=== PATIENT | male | born 1945 | race Caucasian/White ===

== ENCOUNTER 2016-08-09 12:56 | Emergency (ER) | payer MEDICARE ==
[2016-08-09 14:01] LABS: BASOPHILS 0.4 % (0.0-2.0); EOSINOPHILS 2.3 % (0-7); HEMATOCRIT 39.1 % (42.0-54.0); HEMOGLOBIN 13.2 g/dL (13.5-17.5); IMMATURE GRANULOCYTES 0.6 % (0-5); LYMPHOCYTES 18.8 % (15-50); MCH 32.4 pg (26.0-34.0); MCHC 33.8 g/dL (31.0-37.0); MCV 95.8 fL (80.0-100.0); MEAN PLATELET VOLUME 9.7 fL (7.4-10.4); MONOCYTES 14.8 % (2-11); NEUTROPHILS 63.1 % (40-80); PLATELET COUNT 187 10x3/uL (130-400); RBC 4.08 10x6/uL (4.20-6.10); RDW 12.9 % (11.5-14.5)
== END 2016-08-09 14:44 | disposition home or self-care (01) ==
LOC: D.ER 12:56
PROVIDERS: Emergency Medicine
DX: S83.92XA Sprain of unspecified site of left knee, initial encounter (principal); X58.XXXA Exposure to other specified factors, initial encounter; Y93.89 Activity, other specified; Y92.89 Other specified places as the place of occurrence of the external cause

== ENCOUNTER 2016-12-12 15:22 | Emergency (ER) | payer MEDICARE | END 2016-12-12 17:21 | disposition home or self-care (01) | LOC: D.ER 15:22 | DX: M25.512 Pain in left shoulder (principal); M54.2 Cervicalgia; M25.561 Pain in right knee; M25.562 Pain in left knee; V89.2XXA Person injured in unspecified motor-vehicle accident, traffic, initial encounter ==

== ENCOUNTER 2016-12-27 15:50 | Inpatient (IN) | payer MEDICARE ==
[~2016-12-27] VITALS: Ht 167.6 cm; Wt 88.7 kg
[2016-12-27 17:26] LABS: ALBUMIN 3.1 g/dL (3.4-5.0); ALKALINE PHOSPHATASE 60 U/L (46-116); ALT (SGPT) 34 U/L (10-68); CALC OSMOLALITY 286 mosm/kg (275-300); CALCIUM 9.5 mg/dL (8.5-10.1); CARBON DIOXIDE 25.4 mmol/L (21.0-32.0); CHLORIDE - SERUM 104 mmol/L (98-107); CREATININE - SERUM 5.3 mg/dL (0.6-1.3); GLUCOSE 96 mg/dL (74-106); POTASSIUM - SERUM 3.4 mmol/L (3.5-5.1); PROTEIN - SERUM 6.8 g/dL (6.4-8.2); SODIUM 138 mmol/L (136-145); UREA NITROGEN 42 mg/dL (7-18); eGFR NON AFRICAN AMERICAN 11 mL/min (90-120)
[2016-12-27 17:29] LABS: APTT 26.7 SECONDS (22.8-39.4); INR 1.1 (0.85-1.17); PROTIME 14.1 SECONDS (11.6-15.0)
[2016-12-27 17:34] LABS: PRO BNP 529 pg/mL (0-125); TROPONIN-I < 0.017 ng/mL (0.000-0.060)
[2016-12-27 19:17] LABS: BASOPHILS 0.6 % (0-2); EOSINOPHILS 1.8 % (0-7); HEMATOCRIT 37.3 % (42.0-54.0); HEMOGLOBIN 12.4 g/dL (13.5-17.5); LYMPHOCYTES 12.7 % (15-50); MCH 32.4 pg (26.0-34.0); MCHC 33.2 g/dL (31.0-37.0); MCV 97.4 fL (80.0-100.0); MEAN PLATELET VOLUME 9.4 fL (7.4-10.4); MONOCYTES 12.9 % (2-11); PLATELET COUNT 211 10x3/uL (130-400); RBC 3.83 10x6/uL (4.20-6.10); RDW 13.2 % (11.5-14.5); WBC 7.2 10x3/uL (4.8-10.8)
[2016-12-27 20:40] VITALS: BP 129/67; Ht 167.6 cm; Wt 88.7 kg
[2016-12-27] MEDS ORDERED: DIOVAN80 MG PO (21:09)
[2016-12-27] MEDS ORDERED: METOPROLOL TART50 MG PO (21:09)
[2016-12-27] MEDS ORDERED: GLUCOTROL 5 MG T5 MG PO (21:10)
[2016-12-27] MEDS ORDERED: PACERONE400 MG PO (21:10)
[2016-12-27] MEDS ORDERED: TRIAMTERENE-HCT1 TA1 PO (21:11)
[2016-12-27] MEDS ORDERED: CRESTOR10 MG PO (21:12)
[2016-12-27] MEDS ORDERED: HYDROCODONE-APA1 TAB PO (21:13)
[2016-12-27] MEDS ORDERED: CYCLOBENZAPRINE10 MG PO (21:13)
[2016-12-28] VITALS: BP 127/74
--- NOTE | 2016-12-28 03:06 | NUR ---
PT AWAKE, RESPIRATIONS REGULAR AND UNLABORED, VOIDING APPROXIMATELY 300 CC PER TIME TIMES THREE. IV INFUSING.
[2016-12-28 04:00] VITALS: BP 134/86
--- NOTE | 2016-12-28 06:50 | NUR ---
PT RESTING WITHOUT S/S OF DISTRESS.
[2016-12-28 08:00] VITALS: BP 142/76
--- NOTE | 2016-12-28 08:22 | NUR ---
ASSESSMENT DONE. DENIES NEEDS
--- NOTE | 2016-12-28 10:16 | NUR ---
UP TO SHOWER. NO NEEDS INDICATED. WILL MONITOR.
[2016-12-28 12:00] VITALS: BP 132/70
[2016-12-28 16:00] VITALS: BP 147/77
[2016-12-28 17:19] LABS: CREATININE - URINE 80.6 mg/dL (30-125); POTASSIUM - URINE 38.2 MMOL/L (12.0-62.0); PROTEIN - URINE 62.3 mg/dL (0.0-11.9)
[2016-12-28 17:24] LABS: APPEARANCE HAZY (CLEAR); BILIRUBIN NEGATIVE (NEGATIVE); COLOR YELLOW (YELLOW); GLUCOSE 50 mg/dL (NEGATIVE); KETONE NEGATIVE (NEGATIVE); LEUKOCYTE ESTERASE NEGATIVE (NEGATIVE); NITRITE NEGATIVE (NEGATIVE); PROTEIN TRACE mg/dL (NEGATIVE); UROBILINOGEN NORMAL (NORMAL); WHITE CELLS - URINE 0-5 /hpf (0-5)
--- NOTE | 2016-12-28 17:43 | NUR ---
WITHOUT CHANGES OR DISTRESS NOTED AT THIS TIME. DENIES NEEDS.
[2016-12-28 19:00] VITALS: BP 152/79
--- NOTE | 2016-12-28 19:40 | NUR ---
PT IN BED RESTING WITH EYES CLOSED. IV TO RIGHT AC INTACT WITH NS. URINAL AT BEDSIDE. NO DISTRESS NOTED. WILL MONITOR.
--- NOTE | 2016-12-28 20:10 | NUR ---
WAS CALLED TO ROOM. PT IV HAD GOTTEN PULLED OUT AND BLOOD WAS ALL OVER FLOOR BED AND LINEN AND PT WAS STILL BLEEDING. APPLIED PRESSURE TO IV SITE AND THE ROOM AND BED WAS CLEANED WITH HELP FROM TUBULAR PRODUCTS FABRICATOR. PT RETURNED TO BED WILL RESITE THE IV.
[2016-12-29] VITALS (7 sets, daily range): BP systolic 133–150; BP diastolic 67–81
[2016-12-29 06:31] LABS: BASOPHILS 0.3 % (0-2); EOSINOPHILS 2.6 % (0-7); HEMATOCRIT 35.8 % (42.0-54.0); IMMATURE GRANULOCYTES 0.8 % (0-5); LYMPHOCYTES 16.4 % (15-50); MCH 32.2 pg (26.0-34.0); MCHC 33.5 g/dL (31.0-37.0); MEAN PLATELET VOLUME 9.4 fL (7.4-10.4); MONOCYTES 12.8 % (2-11); NEUTROPHILS 67.1 % (40-80); PLATELET COUNT 198 10x3/uL (130-400); RBC 3.73 10x6/uL (4.20-6.10); RDW 12.9 % (11.5-14.5); WBC 7.4 10x3/uL (4.8-10.8)
[2016-12-29 06:49] LABS: ANION GAP 10.2 mmol/L (8-16); CALCIUM 9.5 mg/dL (8.5-10.1); CARBON DIOXIDE 25.9 mmol/L (21.0-32.0); POTASSIUM - SERUM 3.1 mmol/L (3.5-5.1)
[2016-12-29 06:54] LABS: CREATININE - SERUM 3.9 mg/dL (0.6-1.3)
--- NOTE | 2016-12-29 18:07 | NUR ---
IV STARTED RIGHT HAND 22 GA X 1 ATTEMPT COVERED WITH OP SITE AND SECURED
--- NOTE | 2016-12-29 18:44 | NUR ---
ALERT AND ORIENTED X4. RESTING IN BED. AIR AND MISSILE DEFENSE CREWMEMBER RESITE IV TO RT HAND 22G. RESTART NS @ 100ml/HR PER . POSSIBLE DISCHARGE TOMORROW IF KIDNEY FUNCTIONS STABLE. DENIES ANY NEEDS. DENIES PAIN OR SOB. AMBULATES IN PERKINS. GAIT STEADY. BED LOCKED AND LOW. CALL LIGHT IN REACH. REFUSE SCDs. CONTINUE PLAN OF CARE. SINUS RHTHYM 68bpm ON TELEMETRY.
--- NOTE | 2016-12-29 19:48 | NUR ---
RESUMED CARE OF PT, LYING IN BED WITH EYES CLOSED RESPIRATIONS EVEN AND UNLABORED ON ROOM AIR. 60 SR ON TELEMETRY. LEFT HAND INFUSING NS @ 100. NO NEEDS NOTED AT THIS TIME. CALL LIGHT IN REACH. WILL CONTINUE TO MONITOR. SEE NURSE ASSESSMENT.
[2016-12-30 04:00] VITALS: BP 141/67
[2016-12-30 05:08] LABS: BASOPHILS 0.1 % (0-2); EOSINOPHILS 2.7 % (0-7); HEMATOCRIT 36.4 % (42.0-54.0); HEMOGLOBIN 12.3 g/dL (13.5-17.5); IMMATURE GRANULOCYTES 0.5 % (0-5); LYMPHOCYTES 15.5 % (15-50); MCH 32.5 pg (26.0-34.0); MCHC 33.8 g/dL (31.0-37.0); MEAN PLATELET VOLUME 9.2 fL (7.4-10.4); NEUTROPHILS 69.2 % (40-80); PLATELET COUNT 172 10x3/uL (130-400); RBC 3.79 10x6/uL (4.20-6.10); WBC 7.5 10x3/uL (4.8-10.8)
[2016-12-30 05:27] LABS: CALCIUM 9.6 mg/dL (8.5-10.1); CARBON DIOXIDE 28.4 mmol/L (21.0-32.0); CREATININE - SERUM 3.3 mg/dL (0.6-1.3); POTASSIUM - SERUM 3.4 mmol/L (3.5-5.1)
[2016-12-30 08:22] VITALS: BP 137/74
[2016-12-30 12:21] VITALS: BP 153/82
--- NOTE | 2016-12-30 13:31 | NUR ---
ALERT AND ORIENTED X4. RETURN TO ROOM VIA WHEELCHAIR FROM CT SCAN. DENIES SOB. COMPLAINS OF KNEE PAIN 11/13. SINUS RHTHYM 62bpm ON TELEMETRY. ELECTROLYTE PROTOCOL FOLLOWED TO CORRECT POTASSIUM 3.4. REFUSE SCDs. AMBULATORY. GAIT STEADY. CONTINUE PLAN OF CARE. RT HAND IV INFUSING NS @ 100mL/HR ORDERED.
--- NOTE | 2016-12-30 17:47 | NUR ---
VERBAL AND WRITTEN DISCHARGE INSTRUCTIONS GIVEN TO PATIENT. SALINE LOCK REMOVED WITH CATH TIP INTACT.
--- NOTE | 2016-12-30 17:49 | NUR ---
RT HAND IV DC BY LINDA JACKSON. DISCHARGE PAPERS SIGNED ON CHART. ESCORT TO RIDE VIA WHEELCHAIR. REMAINS FREE FROM INJURY.
== END 2016-12-30 17:50 | disposition home or self-care (01) | DRG 684 ==
LOC: D.ER 15:50 → D.M2 19:24 → OBSVTIME 19:24 → D.M2 20:13
PROVIDERS: Emergency Medicine; Internal Medicine; ADMIT Family Medicine
DX: N17.9 Acute kidney failure, unspecified (principal); E11.22 Type 2 diabetes mellitus with diabetic chronic kidney disease; I12.9 Hypertensive chronic kidney disease with stage 1 through stage 4 chronic kidney disease, or unspecified chronic kidney disease; N18.4 Chronic kidney disease, stage 4 (severe); E11.65 Type 2 diabetes mellitus with hyperglycemia; D63.1 Anemia in chronic kidney disease; I25.10 Atherosclerotic heart disease of native coronary artery without angina pectoris; Z98.61 Coronary angioplasty status; Z95.0 Presence of cardiac pacemaker; Z86.73 Personal history of transient ischemic attack (TIA), and cerebral infarction without residual deficits; S82.101D Unspecified fracture of upper end of right tibia, subsequent encounter for closed fracture with routine healing; X58.XXXD Exposure to other specified factors, subsequent encounter

== ENCOUNTER 2017-04-16 13:39 | Emergency (ER) | payer MEDICARE ==
[2016-12-27 20:40] VITALS: BMI 31.3
[~2017-04-16 13:39] MED LIST: CRESTOR10 MG PO; CYCLOBENZAPRINE10 MG PO; DIOVAN80 MG PO; GLUCOTROL 5 MG T5 MG PO; HYDROCODONE-APA1 TAB PO; METOPROLOL TART50 MG PO; PACERONE400 MG PO; TRIAMTERENE-HCT1 TA1 PO
== END 2017-04-16 14:33 | disposition home or self-care (01) ==
LOC: D.ER 13:39
DX: S39.012A Strain of muscle, fascia and tendon of lower back, initial encounter (principal); X58.XXXA Exposure to other specified factors, initial encounter; Y93.89 Activity, other specified; Y92.029 Unspecified place in mobile home as the place of occurrence of the external cause; M62.838 Other muscle spasm; M54.5 Low back pain; I10 Essential (primary) hypertension

== ENCOUNTER 2018-01-13 17:49 | Observation (INO) | payer MEDICARE ==
[~2018-01-13] VITALS: Ht 167.6 cm; Wt 86.9 kg
[2018-01-13] MEDS ORDERED: BAYER CHEWABLE81 MG PO (18:08)
[2018-01-13] MEDS ORDERED: PHENERGAN12.5 MG RC (18:09)
[2018-01-13] MEDS ORDERED: DIOVAN80 MG PO (18:09)
[2018-01-13] MEDS ORDERED: CATAPRES0.1 MG PO (18:11)
[2018-01-13 18:55] LABS: BASOPHILS 0.2 % (0-2); EOSINOPHILS 3.6 % (0-7); HEMATOCRIT 40.8 % (42.0-54.0); HEMOGLOBIN 14.2 g/dL (13.5-17.5); IMMATURE GRANULOCYTES 0.4 % (0-5); LYMPHOCYTES 10.1 % (15-50); MCH 33.1 pg (26.0-34.0); MCHC 34.8 g/dL (31.0-37.0); MCV 95.1 fL (80.0-100.0); MEAN PLATELET VOLUME 9.2 fL (7.4-10.4); MONOCYTES 13.4 % (2-11); NEUTROPHILS 72.3 % (40-80); PLATELET COUNT 192 10x3/uL (130-400); RBC 4.29 10x6/uL (4.20-6.10); RDW 13.6 % (11.5-14.5); WBC 11.6 10x3/uL (4.8-10.8)
[2018-01-13 19:17] LABS: ALBUMIN 2.7 g/dL (3.4-5.0); ANION GAP 6.6 mmol/L (8-16); BILIRUBIN - TOTAL 0.38 mg/dL (0.2-1.3); CALCIUM 9.3 mg/dL (8.5-10.1); CREATININE - SERUM 2.4 mg/dL (0.6-1.3); POTASSIUM - SERUM 3.6 mmol/L (3.5-5.1); PROTEIN - SERUM 6.7 g/dL (6.4-8.2)
[2018-01-13 19:27] LABS: APPEARANCE CLEAR (CLEAR); COLOR YELLOW (YELLOW); SPECIFIC GRAVITY 1.015 (1.005-1.020)
[2018-01-13 19:28] LABS: BILIRUBIN NEGATIVE (NEGATIVE); GLUCOSE NEGATIVE (NEGATIVE); KETONE NEGATIVE (NEGATIVE); NITRITE NEGATIVE (NEGATIVE); PROTEIN 1+ mg/dL (NEGATIVE); UROBILINOGEN NORMAL (NORMAL)
[2018-01-13 22:59] VITALS: BP 159/79
[2018-01-14 01:30] VITALS: BP 157/74
[2018-01-14 04:00] VITALS: BP 166/62
[2018-01-14 04:10] VITALS: BP 119/80; BMI 28.2
[2018-01-14 09:54] VITALS: BP 187/77
[2018-01-14 11:00] VITALS: BP 154/73
[2018-01-14 11:04] VITALS: Ht 167.6 cm; Wt 86.9 kg
[2018-01-14 20:00] VITALS: BP 186/75
[2018-01-14] MEDS ORDERED: HYDROCODONE-APA1 TAB PO (22:04)
[2018-01-15] VITALS: BP 160/56
[2018-01-15 04:00] VITALS: BP 156/77
[2018-01-15 04:30] LABS: BASOPHILS 0.2 % (0-2); EOSINOPHILS 3.5 % (0-7); HEMATOCRIT 34.4 % (42.0-54.0); HEMOGLOBIN 11.5 g/dL (13.5-17.5); IMMATURE GRANULOCYTES 0.3 % (0-5); LYMPHOCYTES 13.6 % (15-50); MCH 31.7 pg (26.0-34.0); MCHC 33.4 g/dL (31.0-37.0); MCV 94.8 fL (80.0-100.0); MEAN PLATELET VOLUME 9.4 fL (7.4-10.4); MONOCYTES 13.4 % (2-11); PLATELET COUNT 165 10x3/uL (130-400); RBC 3.63 10x6/uL (4.20-6.10); RDW 13.5 % (11.5-14.5); WBC 9.1 10x3/uL (4.8-10.8)
[2018-01-15 04:45] LABS: ALBUMIN 2.2 g/dL (3.4-5.0); ANION GAP 5.7 mmol/L (8-16); BILIRUBIN - TOTAL 0.28 mg/dL (0.2-1.3); CALCIUM 8.9 mg/dL (8.5-10.1); CREATININE - SERUM 2.4 mg/dL (0.6-1.3); POTASSIUM - SERUM 3.7 mmol/L (3.5-5.1); PROTEIN - SERUM 5.5 g/dL (6.4-8.2)
[2018-01-15 08:01] VITALS: BP 106/73
[2018-01-15 11:21] VITALS: BP 103/77
[2018-01-15 15:33] VITALS: BP 109/71
[2018-01-15 20:57] VITALS: BP 158/64
[2018-01-16 01:26] VITALS: BP 172/75
[2018-01-16 04:00] VITALS: BP 127/48
[2018-01-16 05:18] LABS: BASOPHILS 0.2 % (0-2); EOSINOPHILS 4.4 % (0-7); HEMATOCRIT 32.1 % (42.0-54.0); HEMOGLOBIN 10.8 g/dL (13.5-17.5); IMMATURE GRANULOCYTES 0.5 % (0-5); LYMPHOCYTES 12.5 % (15-50); MCH 31.5 pg (26.0-34.0); MCHC 33.6 g/dL (31.0-37.0); MCV 93.6 fL (80.0-100.0); MEAN PLATELET VOLUME 9.7 fL (7.4-10.4); MONOCYTES 10.4 % (2-11); PLATELET COUNT 160 10x3/uL (130-400); RBC 3.43 10x6/uL (4.20-6.10); RDW 13.5 % (11.5-14.5); WBC 9.7 10x3/uL (4.8-10.8)
[2018-01-16 05:53] LABS: ALBUMIN 1.9 g/dL (3.4-5.0); ANION GAP 9.4 mmol/L (8-16); BILIRUBIN - TOTAL 0.28 mg/dL (0.2-1.3); CALCIUM 8.5 mg/dL (8.5-10.1); CARBON DIOXIDE 22.9 mmol/L (21.0-32.0); POTASSIUM - SERUM 3.3 mmol/L (3.5-5.1)
[2018-01-16 08:30] VITALS: BP 144/81
[2018-01-16 12:01] VITALS: BP 153/78
[2018-01-16 16:14] VITALS: BP 164/79
== END 2018-01-16 17:22 | disposition home health service (06) ==
LOC: D.ER 17:49 → D.EDHOLD 22:22 → D.M2 22:22 → D.EDHOLD 22:22 → OBSVTIME 22:22 → D.M2 01-14 01:03
PROVIDERS: Family Medicine
DX: E11.649 Type 2 diabetes mellitus with hypoglycemia without coma (principal); E11.22 Type 2 diabetes mellitus with diabetic chronic kidney disease; I12.9 Hypertensive chronic kidney disease with stage 1 through stage 4 chronic kidney disease, or unspecified chronic kidney disease; N18.4 Chronic kidney disease, stage 4 (severe); I25.10 Atherosclerotic heart disease of native coronary artery without angina pectoris; Z95.1 Presence of aortocoronary bypass graft; D63.1 Anemia in chronic kidney disease; Z95.0 Presence of cardiac pacemaker; I48.91 Unspecified atrial fibrillation; R19.5 Other fecal abnormalities

== ENCOUNTER 2018-01-19 08:25 | Day surgery (SDC) | payer MEDICARE ==
[~2018-01-19] VITALS: Ht 167.6 cm; Wt 79.1 kg
--- NOTE | ~2018-01-19 | OP ---
PATIENT NAME: ANABELLE STRAUSS MEDICAL RECORD: [id number] :47 LOCATION:[facility] ADMISSION DATE: SURGEON: RENZO TYLER DO DATE OF OPERATION: 01/19/2018 PROCEDURE: EGD with biopsies. INDICATIONS FOR PROCEDURE: Melenic stools, anemia, nausea and vomiting. SCOPE: Olympus video gastroscope. MEDICATIONS: Propofol 100 mg IV per anesthesia. ESTIMATED BLOOD LOSS: Minimal. COMPLICATIONS: None. FINDINGS: Informed consent was given. The patient was made comfortable with the above medication. After reaching an adequate level of sedation by slow IV push, the patient was placed on his left side. The endoscope was advanced under direct visualization through the mouth to the second portion of the duodenum. The entire esophagus appeared normal. At the GE junction, there was some evidence of LA class A reflux induced esophagitis without ulcerations or erosions. The endoscope was advanced beyond the GE junction into the stomach and retroflexed to view the cardia, where a small sliding hiatal hernia was present. The fundus and body of the stomach appeared normal. In the antrum and prepyloric region, there were a couple polypoid lesions which appeared to be reactive. Biopsies were taken from these sites to submit for histopathology. Random biopsies were taken in the stomach to submit for histopathology and to rule out the presence of H. pylori. The endoscope was advanced beyond the pylorus into the duodenum. The entire examined duodenum appeared normal. The endoscope was then withdrawn from the patient. The patient tolerated the procedure well and there were no complications. IMPRESSION: 1. LA class A reflux-induced esophagitis. 2. Small sliding hiatal hernia. 3. A couple gastric polyps, which appear to be reactive in nature. Biopsies were taken of these sites. PLAN AND RECOMMENDATIONS: 1. Discharge home when recovery parameters are met. 2. Follow up biopsy specimen results. 3. If biopsy return with adenomatous tissue on biopsies from the gastric polyps, the patient will be rescheduled for an EGD for polypectomy. If these are reactive, we will treat this medically. 4. Continue current medications. 5. Protonix 40 mg daily times 8 weeks. 6. Recommend a colonoscopy as the patient has never had one performed. TRANSINT:[id number] Voice Confirmation ID: [id number] DOCUMENT ID: [id number] OPERATIVE REPORT [id number] ANABELLE STRAUSSRENZO MCKINNON DO at 1255 CC: [id number] DICTATION DATE: 01/19/18 1044 SAP TECHNICAL DEVELOPER: 01/19/18 1123 [facility] 01/19/18 [id number] [place] [address]
[~2018-01-19 08:25] MED LIST changes: +BAYER CHEWABLE81 MG PO; +CATAPRES0.1 MG PO; +PHENERGAN12.5 MG RC
[2018-01-19] MEDS ORDERED: BAYER CHEWABLE81 MG PO (09:44)
[2018-01-19 09:50] VITALS: Ht 167.6 cm; Wt 79.1 kg
[2018-01-19 10:00] LABS: BASOPHILS 0.3 % (0-2); EOSINOPHILS 5.3 % (0-7); HEMATOCRIT 34.4 % (42.0-54.0); HEMOGLOBIN 11.6 g/dL (13.5-17.5); IMMATURE GRANULOCYTES 0.5 % (0-5); LYMPHOCYTES 12.7 % (15-50); MCH 31.9 pg (26.0-34.0); MCHC 33.7 g/dL (31.0-37.0); MCV 94.5 fL (80.0-100.0); MEAN PLATELET VOLUME 9.2 fL (7.4-10.4); MONOCYTES 9.8 % (2-11); NEUTROPHILS 71.4 % (40-80); PLATELET COUNT 170 10x3/uL (130-400); RBC 3.64 10x6/uL (4.20-6.10); RDW 13.3 % (11.5-14.5); WBC 9.5 10x3/uL (4.8-10.8)
[2018-01-19 10:12] LABS: ANION GAP 4.6 mmol/L (8-16); CALCIUM 9.1 mg/dL (8.5-10.1); CARBON DIOXIDE 31.1 mmol/L (21.0-32.0); CREATININE - SERUM 2.2 mg/dL (0.6-1.3); POTASSIUM - SERUM 3.7 mmol/L (3.5-5.1)
== END 2018-01-19 12:09 | disposition home or self-care (01) ==
LOC: D.OPS 08:25
PROVIDERS: Anesthesiology
DX: K21.0 Gastro-esophageal reflux disease with esophagitis (principal); K44.9 Diaphragmatic hernia without obstruction or gangrene; K31.7 Polyp of stomach and duodenum; Z01.812 Encounter for preprocedural laboratory examination

== ENCOUNTER 2018-04-10 05:15 | Day surgery (SDC) | payer MEDICARE, MEDICAID ==
[2018-04-09 11:04] LABS: BASOPHILS 0.4 % (0-2); EOSINOPHILS 3.1 % (0-7); HEMATOCRIT 38.5 % (42.0-54.0); HEMOGLOBIN 13.1 g/dL (13.5-17.5); IMMATURE GRANULOCYTES 0.5 % (0-5); LYMPHOCYTES 15.8 % (15-50); MCH 32.3 pg (26.0-34.0); MCV 95.1 fL (80.0-100.0); MEAN PLATELET VOLUME 9.1 fL (7.4-10.4); MONOCYTES 9.2 % (2-11); PLATELET COUNT 171 10x3/uL (130-400); RBC 4.05 10x6/uL (4.20-6.10); RDW 13.2 % (11.5-14.5)
[2018-04-09 11:13] LABS: ANION GAP 9.2 mmol/L (8-16); CALCIUM 9.2 mg/dL (8.5-10.1); CREATININE - SERUM 3.1 mg/dL (0.6-1.3); POTASSIUM - SERUM 4.2 mmol/L (3.5-5.1)
[2018-04-09 11:21] LABS: APTT 26.9 SECONDS (22.8-39.4); INR 1.02 (0.85-1.17)
[~2018-04-10] VITALS: Ht 167.6 cm; Wt 78.0 kg
--- NOTE | ~2018-04-10 | OP ---
PATIENT NAME: ANABELLE STRAUSS MEDICAL RECORD: [id number] :47 LOCATION:D.[facility] ADMISSION DATE: SURGEON: CANDACE ZAVALA MD DATE OF OPERATION: 04/10/2018 PREOPERATIVE DIAGNOSIS: Chronic kidney disease IV. POSTOPERATIVE DIAGNOSIS: Chronic kidney disease IV. OPERATION PERFORMED: Creation of a left arm brachiocephalic arteriovenous fistula. SURGEON: Candace Zavala MD ANESTHESIA: General plus regional nerve block per MORTGAGE LOAN ORIGINATOR. REFERRING PHYSICIAN: Dr. Ochoa PREOPERATIVE NOTE: This 72-year-old white male is anticipated to require dialysis and is brought to the hospital today for fistula creation. DESCRIPTION OF PROCEDURE: Under anesthesia in supine position, the patient was prepped and draped in a sterile manner. I applied nitroglycerin to the skin of the arm and forearm and used a Midland drain and then examined him with ultrasound and noted that the basilic and cephalic veins in the arm from the antecubital space proximally were both excellent candidates for fistula creation. I opted to use the cephalic vein. A transverse incision was made and this vein was dissected and then its junction with the median cubital vein was ligated with 3-0 Vicryl preserving that median cubital basilic venous drainage. The vein was then flushed with heparinized saline and treated with topical papaverine and controlled with an atraumatic vascular clamp. I exposed the brachial artery and controlled it proximally and distally with doubly looped Silastic tapes. I opened the artery and flushed it proximally and distally with heparinized saline and then bevelled the vein and did an end-to-side, end-of-vein to [id number] anastomosis with running 7-0 Prolene. When completed, the loops were released and excellent flow developed immediately in the fistula. The suture line was hemostatic and there was preservation of pulsatile high resistance type flow in the distal brachial artery and in the radial artery at the wrist with good pulsatile continuous flow in the proximal brachial artery and within the fistula. The wounds were irrigated with Ancef-gentamicin solution and infiltrated with 0.25% Marcaine without epinephrine and closed with interrupted inverted 3-0 Vicryl and running intracuticular 4-0 Stratafix, then Dermabond glue and a bandage of Maxorb Ag, Tegaderm, and Cavilon skin prep. The patient was awakened and taken to the recovery room. Blood loss was about 10 cc or less, certainly unreplaced. All sponges, instruments, and needles were accounted for. No drain was used and no surgical specimen submitted for histopathology. He will go home today and return to see me in my office in about 2 weeks. He is advised to use ice off and on and take Tylenol for pain and he is wearing a sling only until the regional block wears off totally and to be sure to take the sling off at least by tomorrow and to resume activities as he can. I would like him to use his arm and not hold still as in a sling. OPERATIVE REPORT [id number] ANABELLE STRAUSS TRANSINT:[id number] Voice Confirmation ID: [id number] DOCUMENT ID: [id number] CANDACE ZAVALA MD at 1645 CC: TAMEKA OCHOA MD [id number] DICTATION DATE: 04/10/18 1325 DIRECTOR INTERNAL COMMUNICATIONS: 04/10/18 1336 [facility] [address] [place] [address]
[~2018-04-10 05:15] MED LIST changes: +ATIVAN1 MG PO; +HYDRALAZINE HCL25 MG PO
[2018-04-10 06:11] VITALS: Ht 167.6 cm; Wt 78.0 kg
== END 2018-04-10 13:35 | disposition home or self-care (01) ==
LOC: D.OPS 05:15 → D.PAN 08:00 → D.OPS 08:00
PROVIDERS: Surgery
DX: N18.4 Chronic kidney disease, stage 4 (severe) (principal); Z01.812 Encounter for preprocedural laboratory examination

== ENCOUNTER 2018-06-10 05:38 | Inpatient (IN) | payer MEDICARE, MEDICAID ==
[2018-06-10] VITALS (25 sets, daily range): BP systolic 126–208; BP diastolic 65–106; BMI 29.0
[~2018-06-10] VITALS: Ht 167.6 cm; Wt 85.1 kg
--- NOTE | ~2018-06-10 | MORECARE ---
CASE MANAGEMENT DISCHARGE SUMMARY PATIENT: ANABELLE STRAUSS UNIT: [id number] ADM DATE: 06/10/18 AGE: 73 : 46 SEX: M ROOM/BED: D.2234 AUTHOR: SWETHA,DOC PHYSICIAN: REFERRING PHYSICIAN: MARTIN ARIAS MD DATE OF SERVICE: 06/25/18 Discharge Plan Patient Name: ANABELLE STRAUSS Facility: [facility]:[place] : 1945 Planned Disposition: Home with Home Health Anticipated Discharge Date: Discharge Date: Expected LOS: Initial Reviewer: [email or web address] Initial Review Date: 06/22/2018 Generated: 06/25/18 11:42 am Comments DCP- Discharge Planning Updated by [email or web address]: Ngozi Mcmullen on 06/25/18 9:[address] Received a call from [facility], they will not accept patient due to medical needs. I called Chanel at [facility] and sent referral there and clinical faxed. I called Clementina Mello and informed of above and she agrees with [facility] referral (second choice). CM will continue to follow and assist with discharge planning/needs. DCP- Discharge Planning Updated by [email or web address]: Ngozi Benedict on 06/24/18 1:[address] Met with patient's girlfriend, Clementina. She and the patient agree to rehab at a skilled facility. ALPHONSO given and they chose [facility]. Referral called to [facility] and clinical faxed. CM will continue to follow and assist with discharge planning/needs. DCP- Discharge Planning Updated by [email or web address]: Ngozi Benedict on 06/24/18 11:[address] Received a call from Lashaun in inpatient rehab and she states that they feel the patient will require a skilled facility rather than inpatient rehab based on his therapy notes. I spoke with patient about this and he would like me to call his ", Clementina". I called Clementina and she would like to meet with me today and choose a skilled facility. She states she is at a school function at this time. I told her when she got here to notify the nurse or principal secretary that she needed to speak with me. CM will continue to follow and assist with discharge planning/needs. DCP- Discharge Planning Updated by [email or web address]: Selam Guillen on 06/22/18 1:[address] Patient Name: ANABELLE STRAUSS Admission Status: ER Accout number: [id number] Admission Date: 06-10-2018 : 1945 Admission Diagnosis:ENCEPHALOPATHY, UNSPECIFIED Attending: MARTIN ARIAS Current LOS: 12 Anticipated DC Date: Planned Disposition: Home with Home Health Primary Insurance: [employer] CHOICE PPO [facility] Discharge Planning Comments: CM spoke with patient at his bedside. Patient states that he plans on returning to his home with his girlfriend Clementina when discharged. Patient states he had Home Health with [facility] prior to admission. Patient denies any discharge needs at this time. CM will continue to follow and assist as needs with discharge planning / needs Color Maker Formulator: Selam Guillen DCP- Discharge Planning Updated by [email or web address]: Selam Guillen on 06/15/18 1:[address] CM still unable to do intake assessment. Patient still on vent at this time. There are some issues with family dynamics regarding girlfriend and daughter. CM will continue to follow and assist with discharge planning / needs. DCP- Discharge Planning Updated by [id number]: Selam Guillen on 06/12/18 4:[address] CM attempted to visit with patient but he currently is on vent and no family available @ this time. CM will continue to follow and assist with discharge planning / needs. DCPIA - Discharge Planning Initial Assessment Updated by [email or web address]: Selam Guillen on 06/22/18 2:06 pm * Is the patient Alert and Oriented? Yes * How many steps to enter\\exit or inside your home? * PCP DR. GARCÍA * Pharmacy [facility] * Preadmission Environment Home with Family * ADLs Independent * Equipment Walker * List name and contact numbers for known caregivers / representatives who currently or will assist patient after discharge: CLEMENTINA MELLO [phone] * Verbal permission to speak to the caregivers and representatives has been obtained from the patient. N/A * Community resources currently utilized Home Health * Please name any agencies selected above. [facility] * Additional services required to return to the preadmission environment? No * Can the patient safely return to the preadmission environment? Yes * Has this patient been hospitalized within the prior 30 days at any hospital? No Last DP export: 06/25/18 9:35 Patient Name: ANABELLE STRAUSS Page [id number] at 1042 All edits/amendments must be made on the electronic document DICTATION DATE: 06/25/18 104 PRODUCTION MECHANIC TIN CANS: MARILU 06/25/18 1042 RPT#: [id number] DC DATE: STATUS: ADM IN [facility] [address] [place] [address] END OF REPORT
--- NOTE | ~2018-06-10 | EC ---
PATIENT:ANABELLE STRAUSS DATE OF SERVICE: 06/10/18 SEX: M MEDICAL RECORD: [id number] DATE OF : 47 LOCATION:[facility] AGE OF PATIENT: 73 ADMISSION DATE: 06/10/18 REFERRING PHYSICIAN: INTERPRETING PHYSICIAN: MONIQUE DAMON MD ECHOCARDIOGRAM REPORT ECHO CHARGES 4 ECHO COMPLETE Date: 06/11/18 CLINICAL DIAGNOSIS: CHF ECHOCARDIOGRAPHIC MEASUREMENTS (adult normal given) AC root (d.<3.7cm) 3.1 cm LV Septum d (<1.2 cm> 1.5 cm Valve Excursion 0.9 cm LV Septum (systole) 1.8 cm Left Atria (s.<4.0cm> 4.4 cm LVPW d(<1.2cm) 1.5 cm RV (d.<2.3cm) 3.0 cm LVPW (sytole) 1.9 cm LV diastole(<5.6CM) 4.9 cm MV E-F(>70mm/sec) cm LV systole 2.9 cm LVOT Diameter 11.9 cm MV exc.(>10mm) 1.3 cm Est.ejection fraction (50-75%) % DOPPLER: LVIT cm/sec A 64.0 cm/sec E 51.0 cm/sec LA cm/sec RVSP 37 mmHg LVOT 149 cm/sec AOP1/2T m/s Asc. Ao 184 cm/sec RVOT 76 cm/sec RA cm/sec PA 147 cm/sec AV Gradient Peak 13.61mmHg AV Mean 6.81 mmHg AV Area 2.4 cm MV Gradient Peak 3.11 mmHg MV Mean 0.84 mmHg MV Area cm COMMENTS: Customer Accounts Advisor: 2 TARIQ WEBER Cheese Grader: 3 Dr. Goodman TAPE# PACS Pericardial Effusion N DATE OF SERVICE: 06/11/2018 Adequate 2-D echo, color flow and spectral Doppler, and M-mode. LVH is present. LV internal dimensions are normal. Wall motion is normal. EF is greater than or equal to 55%. Aortic valve is tricuspid. No evidence of stenosis on Doppler interrogation. Left atrium is dilated at 4.4 cm. Mitral valve shows no prolapse. Mild MR. Right-sided chambers grossly normal. Mild TR. TRANSINT:[id number] Voice Confirmation ID: [id number] DOCUMENT ID: [id number] ECHOCARDIOGRAM REPORT [id number] ANABELLE STRAUSS,MONIQUE Snyder MD at 1546 CC: [id number] DICTATION DATE: 06/11/18 1229 WIND SITE MANAGER: 06/11/18 1250 ADM IN [facility] [address] [place] [address]
--- NOTE | ~2018-06-10 | MORECARE ---
CASE MANAGEMENT DISCHARGE SUMMARY PATIENT: ANABELLE STRAUSS UNIT: [id number] ADM DATE: 06/10/18 AGE: 73 : 46 SEX: M ROOM/BED: D.2313 AUTHOR: SWETHA,DOC PHYSICIAN: REFERRING PHYSICIAN: MARTIN ARIAS MD DATE OF SERVICE: 06/22/18 Discharge Plan Patient Name: ANABELLE STRAUSS Facility: [facility]:[place] : 1945 Planned Disposition: Home with Home Health Anticipated Discharge Date: Discharge Date: Expected LOS: Initial Reviewer: [email or web address] Initial Review Date: 06/22/2018 Generated: 06/22/18 3:09 pm Comments DCP- Discharge Planning Updated by [email or web address]: Selam Guillen on 06/15/18 1:[address] CM still unable to do intake assessment. Patient still on vent at this time. There are some issues with family dynamics regarding girlfriend and daughter. CM will continue to follow and assist with discharge planning / needs. DCP- Discharge Planning Updated by [email or web address]: Selam Guillen on 06/12/18 4:[address] CM attempted to visit with patient but he currently is on vent and no family available @ this time. CM will continue to follow and assist with discharge planning / needs. DCPIA - Discharge Planning Initial Assessment Updated by [email or web address]: Selam Guillen on 06/22/18 2:06 pm * Is the patient Alert and Oriented? Yes * How many steps to enter\exit or inside your home? * PCP DR. GARCÍA * Pharmacy [facility] * Preadmission Environment Home with Family * ADLs Independent * Equipment Walker * List name and contact numbers for known caregivers / representatives who currently or will assist patient after discharge: CLEMENTINAJAKE MCELROY [phone] * Verbal permission to speak to the caregivers and representatives has been obtained from the patient. N/A * Community resources currently utilized Home Health * Please name any agencies selected above. [facility] * Additional services required to return to the preadmission environment? No * Can the patient safely return to the preadmission environment? Yes * Has this patient been hospitalized within the prior 30 days at any hospital? No Last DP export: 06/15/18 1:43 Patient Name: ANABELLE STRAUSS Page [id number] at 1410 All edits/amendments must be made on the electronic document DICTATION DATE: 06/22/181408 REAL ESTATE SITE ANALYST: MARILU 06/22/181408 RPT#: [id number] DC DATE: STATUS: ADM IN [facility] [address] [place] [address] END OF REPORT
--- NOTE | ~2018-06-10 | MORECARE ---
CASE MANAGEMENT DISCHARGE SUMMARY PATIENT: ANABELLE STRAUSS UNIT: [id number] ADM DATE: 06/10/18 AGE: 73 : 47 SEX: M ROOM/BED: D.2313 AUTHOR: SWETHA,DOC PHYSICIAN: REFERRING PHYSICIAN: MARTIN ARIAS MD DATE OF SERVICE: 06/22/18 Discharge Plan Patient Name: ANABELLE STRAUSS Facility: [facility]:[place] : 1945 Planned Disposition: Home with Home Health Anticipated Discharge Date: Discharge Date: Expected LOS: Initial Reviewer: [email or web address] Initial Review Date: 06/22/2018 Generated: 06/22/18 3:16 pm Comments DCP- Discharge Planning Updated by [email or web address]: Selam Guillen on 06/22/18 1:[address] Patient Name: ANABELLE STRAUSS Admission Status: ER Accout number: [id number] Admission Date: 06-10-2018 : 1945 Admission Diagnosis:ENCEPHALOPATHY, UNSPECIFIED Attending: MARTIN ARIAS Current LOS: 12 Anticipated DC Date: Planned Disposition: Home with Home Health Primary Insurance: [employer] CHOICE PPO [facility] Discharge Planning Comments: CM spoke with patient at his bedside. Patient states that he plans on returning to his home with his girlfriend Clementina when discharged. Patient states he had Home Health with [facility] prior to admission. Patient denies any discharge needs at this time. CM will continue to follow and assist as needs with discharge planning / needs Heat Treating Bluer: Selam Guillen DCP- Discharge Planning Updated by [email or web address]: Selam Guillen on 06/15/18 1:[address] CM still unable to do intake assessment. Patient still on vent at this time. There are some issues with family dynamics regarding girlfriend and daughter. CM will continue to follow and assist with discharge planning / needs. DCP- Discharge Planning Updated by [email or web address]: Selam Guillen on 06/12/18 4:[address] CM attempted to visit with patient but he currently is on vent and no family available @ this time. CM will continue to follow and assist with discharge planning / needs. DCPIA - Discharge Planning Initial Assessment Updated by [email or web address]: Selam Guillen on 06/22/18 2:06 pm * Is the patient Alert and Oriented? Yes * How many steps to enter\exit or inside your home? * PCP DR. GARCÍA * Pharmacy [facility] * Preadmission Environment Home with Family * ADLs Independent * Equipment Walker * List name and contact numbers for known caregivers / representatives who currently or will assist patient after discharge: CLEMENTINA MCELROY [phone] * Verbal permission to speak to the caregivers and representatives has been obtained from the patient. N/A * Community resources currently utilized Home Health * Please name any agencies selected above. [facility] * Additional services required to return to the preadmission environment? No * Can the patient safely return to the preadmission environment? Yes * Has this patient been hospitalized within the prior 30 days at any hospital? No Last DP export: 06/22/18 1:09 Patient Name: ANABELLE STRAUSS Page [id number] at 1416 All edits/amendments must be made on the electronic document DICTATION DATE: 06/22/181414 METAL SPRAYING MACHINE OPERATOR: MARILU 06/22/181414 RPT#: [id number] DC DATE: STATUS: ADM IN [facility] [address] [place] [address] END OF REPORT
--- NOTE | ~2018-06-10 | MORECARE ---
CASE MANAGEMENT DISCHARGE SUMMARY PATIENT: ANABELLE STRAUSS UNIT: [id number] ADM DATE: 06/10/18 AGE: 73 : 47 SEX: M ROOM/BED: D.2313 AUTHOR: NAYELI POSADA PHYSICIAN: REFERRING PHYSICIAN: MARTIN ARIAS MD DATE OF SERVICE: 06/15/18 Discharge Plan Patient Name: ANABELLE STRAUSS [facility] : 1945 Planned Disposition: Anticipated Discharge Date: Discharge Date: Expected LOS: Initial Reviewer: [email or web address] Initial Review Date: 06/10/2018 Generated: 06/15/18 3:43 pm Comments DCP- Discharge Planning Updated by [email or web address]: Selam Guillen on 06/15/18 1:[address] CM still unable to do intake assessment. Patient still on vent at this time. There are some issues with family dynamics regarding girlfriend and daughter. CM will continue to follow and assist with discharge planning / needs. DCP- Discharge Planning Updated by [id number]: Selam Guillen on 06/12/18 4:[address] CM attempted to visit with patient but he currently is on vent and no family available @ this time. CM will continue to follow and assist with discharge planning / needs. Last DP export: 06/12/18 4:59 p Patient Name: ANABELLE STRAUSS Page 93270 at 1443 All edits/amendments must be made on the electronic document DICTATION DATE: 06/15/181441 ADVERTISING COPY WRITER: MARILU 06/15/181441 RPT#: [id number] DC DATE: STATUS: ADM IN [facility] [address] [place] [address] END OF REPORT
--- NOTE | ~2018-06-10 | MORECARE ---
CASE MANAGEMENT DISCHARGE SUMMARY PATIENT: ANABELLE ESPITIA UNIT: [id number] ADM DATE: 06/10/18 AGE: 73 : 47 SEX: M ROOM/BED: D.2234 AUTHOR: SWETHA,DOC PHYSICIAN: REFERRING PHYSICIAN: MARTIN ARIAS MD DATE OF SERVICE: 06/26/18 Discharge Plan Patient Name: ANABELLE ESPITIA Facility: [facility]:[place] : 1945 Planned Disposition: Home with Home Health Anticipated Discharge Date: Discharge Date: Expected LOS: Initial Reviewer: [email or web address] Initial Review Date: 06/22/2018 Generated: 06/26/18 1:01 pm Comments DCP- Discharge Planning Updated by [email or web address]: Ngozi Benedict on 06/26/18 10:[address] Kerri called with authorization for admission. He will need to go via ambulance. He is getting potassium for K 2.9 this morning. Cristiane is aware. She states he can have house calls draw potassium at [facility]. DC orders and clinical faxed to [facility]. CM will continue to follow and assist with discharge planning/needs. DCP- Discharge Planning Updated by [id number]: Ngozi Benedict on 06/26/18 6:[address] I do not see the stool for CDT collected yet, I had asked the primary nurse yesterday. I asked Bing today to collect stool for C. Diff if he has a BM. CM will continue to follow. DCP- Discharge Planning Updated by [id number]: Ngozi Benedict on 06/25/18 3:[address] Received a call from the patient's daughter (she had his security call in code) and she states that patient's girlfriend does not treat him right at home. She states as far as she knows, no one has POA. States she would like to see her father come to [place] with her when he is able to be discharged from the skilled facility. She agrees with therapy. I did give her the number to adult protective services to call if she felt she needed to call them. I also told her that he has been referred to [facility] for skilled therapy. CM will continue to follow and assist with discharge planning/needs. Annabel Espitia - DTR - [phone] DCP- Discharge Planning Updated by [email or web address]: Ngozi Mcmullen on 06/25/18 9:[address] Received a call from [facility], they will not accept patient due to medical needs. I called Chanel at [facility] and sent referral there and clinical faxed. I called Clementina Mello and informed of above and she agrees with [facility] referral (second choice). CM will continue to follow and assist with discharge planning/needs. DCP- Discharge Planning Updated by [email or web address]: Ngozi Mcmullen on 06/24/18 1:[address] Met with patient's girlfriend, Clementina. She and the patient agree to rehab at a skilled facility. ALPHONSO given and they chose [facility]. Referral called to [facility] and clinical faxed. CM will continue to follow and assist with discharge planning/needs. DCP- Discharge Planning Updated by [email or web address]: Ngozi Mcmullen on 06/24/18 11:[address] Received a call from Lashaun in inpatient rehab and she states that they feel the patient will require a skilled facility rather than inpatient rehab based on his therapy notes. I spoke with patient about this and he would like me to call his ", Clementina". I called Clementina and she would like to meet with me today and choose a skilled facility. She states she is at a school function at this time. I told her when she got here to notify the nurse or electrician shop that she needed to speak with me. CM will continue to follow and assist with discharge planning/needs. DCP- Discharge Planning Updated by [email or web address]: Selam Guillen on 06/22/18 1:[address] Patient Name: ANABELLE ESPITIA Admission Status: ER Accout number: [id number] Admission Date: 06-10-2018 : 1945 Admission Diagnosis:ENCEPHALOPATHY, UNSPECIFIED Attending: MARTIN ARIAS Current LOS: 12 Anticipated DC Date: Planned Disposition: Home with Home Health Primary Insurance: [employer] CHOICE PPO M[facility] Discharge Planning Comments: CM spoke with patient at his bedside. Patient states that he plans on returning to his home with his girlfriend Clementina when discharged. Patient states he had Home Health with [facility] prior to admission. Patient denies any discharge needs at this time. CM will continue to follow and assist as needs with discharge planning / needs Swat Team Member: Selam Guillen DCP- Discharge Planning Updated by [email or web address]: Selam Guillen on 06/15/18 1:[address] CM still unable to do intake assessment. Patient still on vent at this time. There are some issues with family dynamics regarding girlfriend and daughter. CM will continue to follow and assist with discharge planning / needs. DCP- Discharge Planning Updated by [email or web address]: Selam Guillen on 06/12/18 4:[address] CM attempted to visit with patient but he currently is on vent and no family available @ this time. CM will continue to follow and assist with discharge planning / needs. DCPIA - Discharge Planning Initial Assessment Updated by [email or web address]: Selam Guillen on 06/22/18 2:06 pm * Is the patient Alert and Oriented? Yes * How many steps to enter\\exit or inside your home? * PCP DR. GARCÍA * Pharmacy [facility] * Preadmission Environment Home with Family * ADLs Independent * Equipment Walker * List name and contact numbers for known caregivers / representatives who currently or will assist patient after discharge: CLEMENTINA MELLO [phone] * Verbal permission to speak to the caregivers and representatives has been obtained from the patient. N/A * Community resources currently utilized Home Health * Please name any agencies selected above. [facility] * Additional services required to return to the preadmission environment? No * Can the patient safely return to the preadmission environment? Yes * Has this patient been hospitalized within the prior 30 days at any hospital? No Last DP export: 06/26/18 6:56 Patient Name: ANABELLE ESPITIA Page [id number] at 1201 All edits/amendments must be made on the electronic document DICTATION DATE: 06/26/181200 BOOT LACE CUTTER MACHINE: MARILU 06/26/181200 RPT#: [id number] DC DATE: STATUS: ADM IN [facility] [address] [place] [address] END OF REPORT
--- NOTE | ~2018-06-10 | MORECARE ---
CASE MANAGEMENT DISCHARGE SUMMARY PATIENT: ANABELLE STRAUSS UNIT: [id number] ADM DATE: 06/10/18 AGE: 73 : 47 SEX: M ROOM/BED: D.2234 AUTHOR: SWETHADOC PHYSICIAN: REFERRING PHYSICIAN: MARTIN ARIAS MD DATE OF SERVICE: 06/24/18 Discharge Plan Patient Name: ANABELLE STRAUSS Facility: [facility]:[place] : 1945 Planned Disposition: Home with Home Health Anticipated Discharge Date: Discharge Date: Expected LOS: Initial Reviewer: [email or web address] Initial Review Date: 06/22/2018 Generated: 06/24/18 3:25 pm Comments DCP- Discharge Planning Updated by [email or web address]: Ngozi Sharmada on 06/24/18 1:[address] Met with patient's girlfriend, Clementina. She and the patient agree to rehab at a skilled facility. ALPHONSO given and they chose [facility]. Referral called to [facility] and clinical faxed. CM will continue to follow and assist with discharge planning/needs. DCP- Discharge Planning Updated by [email or web address]: Ngozi Orrda on 06/24/18 11:[address] Received a call from Lashaun in inpatient rehab and she states that they feel the patient will require a skilled facility rather than inpatient rehab based on his therapy notes. I spoke with patient about this and he would like me to call his ", Clementina". I called Clementina and she would like to meet with me today and choose a skilled facility. She states she is at a school function at this time. I told her when she got here to notify the nurse or outboard system operator that she needed to speak with me. CM will continue to follow and assist with discharge planning/needs. DCP- Discharge Planning Updated by [email or web address]: Selam Guillen on 06/22/18 1:[address] Patient Name: ANABELLE STRAUSS Admission Status: ER Accout number: [id number] Admission Date: 06-10-2018 : 1945 Admission Diagnosis:ENCEPHALOPATHY, UNSPECIFIED Attending: MARTIN ARIAS Current LOS: 12 Anticipated DC Date: Planned Disposition: Home with Home Health Primary Insurance: [employer] CHOICE PPO [facility] Discharge Planning Comments: CM spoke with patient at his bedside. Patient states that he plans on returning to his home with his girlfriend Clementina when discharged. Patient states he had Home Health with [facility] prior to admission. Patient denies any discharge needs at this time. CM will continue to follow and assist as needs with discharge planning / needs Rural Mail Contractor: Selam Guillen DCP- Discharge Planning Updated by [email or web address]: Selam Guillen on 06/15/18 1:[address] CM still unable to do intake assessment. Patient still on vent at this time. There are some issues with family dynamics regarding girlfriend and daughter. CM will continue to follow and assist with discharge planning / needs. DCP- Discharge Planning Updated by [email or web address]: Selam Guillen on 06/12/18 4:[address] CM attempted to visit with patient but he currently is on vent and no family available @ this time. CM will continue to follow and assist with discharge planning / needs. DCPIA - Discharge Planning Initial Assessment Updated by [email or web address]: Selam Guillen on 06/22/18 2:06 pm * Is the patient Alert and Oriented? Yes * How many steps to enter\\exit or inside your home? * PCP DR. GARCÍA * Pharmacy [facility] * Preadmission Environment Home with Family * ADLs Independent * Equipment Walker * List name and contact numbers for known caregivers / representatives who currently or will assist patient after discharge: CLEMENTINA MCELROY [phone] * Verbal permission to speak to the caregivers and representatives has been obtained from the patient. N/A * Community resources currently utilized Home Health * Please name any agencies selected above. [facility] * Additional services required to return to the preadmission environment? No * Can the patient safely return to the preadmission environment? Yes * Has this patient been hospitalized within the prior 30 days at any hospital? No External [facility]iders [facility] Next Contact Date: Service Request Date: Service Type: Resolution: Reviewer: Comments: Last DP export: 06/24/18 11:18 Patient Name: ANABELLE STRAUSS Page 29957 at 1425 All edits/amendments must be made on the electronic document DICTATION DATE: 06/24/181424 DRY CELL SEALER: MARILU 06/24/181424 RPT#: [id number] [place] DATE: STATUS: ADM IN [facility] [address] [place] [address] END OF REPORT
--- NOTE | ~2018-06-10 | MORECARE ---
CASE MANAGEMENT DISCHARGE SUMMARY PATIENT: ANABELLE ESPITIA UNIT: [id number] ADM DATE: 06/10/18 AGE: 73 : 47 SEX: M ROOM/BED: D.2234 AUTHOR: SWETHA,DOC PHYSICIAN: REFERRING PHYSICIAN: MARTIN ARIAS MD DATE OF SERVICE: 06/25/18 Discharge Plan Patient Name: ANABELLE ESPITIA Facility: [facility]:[place] : 1945 Planned Disposition: Home with Home Health Anticipated Discharge Date: Discharge Date: Expected LOS: Initial Reviewer: [email or web address] Initial Review Date: 06/22/2018 Generated: 06/25/18 6:05 pm Comments DCP- Discharge Planning Updated by [email or web address]: Ngozi Benedict on 06/25/18 3:[address] Received a call from the patient's daughter (she had his security call in code) and she states that patient's girlfriend does not treat him right at home. She states as far as she knows, no one has POA. States she would like to see her father come to [place] with her when he is able to be discharged from the skilled facility. She agrees with therapy. I did give her the number to adult protective services to call if she felt she needed to call them. I also told her that he has been referred to [facility] for skilled therapy. CM will continue to follow and assist with discharge planning/needs. Annabel Espitia - DTR - [phone] DCP- Discharge Planning Updated by [email or web address]: Ngozi Mcmullen on 06/25/18 9:[address] Received a call from [facility], they will not accept patient due to medical needs. I called Chanel at [facility] and sent referral there and clinical faxed. I called Clementina Mello and informed of above and she agrees with [facility] referral (second choice). CM will continue to follow and assist with discharge planning/needs. DCP- Discharge Planning Updated by [id number]: Ngozi Benedict on 06/24/18 1:[address] Met with patient's girlfriend, Clementina. She and the patient agree to rehab at a skilled facility. ALPHONSO given and they chose [facility]. Referral called to [facility] and clinical faxed. CM will continue to follow and assist with discharge planning/needs. DCP- Discharge Planning Updated by [email or web address]: Ngozi Mcmullen on 06/24/18 11:[address] Received a call from Lashaun in inpatient rehab and she states that they feel the patient will require a skilled facility rather than inpatient rehab based on his therapy notes. I spoke with patient about this and he would like me to call his ", Clementina". I called Clementina and she would like to meet with me today and choose a skilled facility. She states she is at a school function at this time. I told her when she got here to notify the nurse or clerk secretary that she needed to speak with me. CM will continue to follow and assist with discharge planning/needs. DCP- Discharge Planning Updated by [email or web address]: Selam Guillen on 06/22/18 1:[address] Patient Name: ANABELLE ESPITIA Admission Status: Accout number: [id number] Admission Date: 06-10-2018 : 1945 Admission Diagnosis:ENCEPHALOPATHY, UNSPECIFIED Attending: MARTIN ARIAS Current LOS: 12 Anticipated DC Date: Planned Disposition: Home with Home Health Primary Insurance: [employer] CHOICE PPO [facility] Discharge Planning Comments: CM spoke with patient at his bedside. Patient states that he plans on returning to his home with his girlfriend Clementina when discharged. Patient states he had Home Health with [facility] prior to admission. Patient denies any discharge needs at this time. CM will continue to follow and assist as needs with discharge planning / needs Landscaper: Selam Guillen DCP- Discharge Planning Updated by [email or web address]: Selam Guillen on 06/15/18 1:[address] CM still unable to do intake assessment. Patient still on vent at this time. There are some issues with family dynamics regarding girlfriend and daughter. CM will continue to follow and assist with discharge planning / needs. DCP- Discharge Planning Updated by [email or web address]: Selam Guillen on 06/12/18 4:[address] CM attempted to visit with patient but he currently is on vent and no family available @ this time. CM will continue to follow and assist with discharge planning / needs. DCPIA - Discharge Planning Initial Assessment Updated by [email or web address]: Selam Guillen on 06/22/18 2:06 pm * Is the patient Alert and Oriented? Yes * How many steps to enter\\exit or inside your home? * PCP DR. GARCÍA * Pharmacy [facility] * Preadmission Environment Home with Family * ADLs Independent * Equipment Walker * List name and contact numbers for known caregivers / representatives who currently or will assist patient after discharge: CLEMENTINA MELLO [phone] * Verbal permission to speak to the caregivers and representatives has been obtained from the patient. N/A * Community resources currently utilized Home Health * Please name any agencies selected above. [facility] * Additional services required to return to the preadmission environment? No * Can the patient safely return to the preadmission environment? Yes * Has this patient been hospitalized within the prior 30 days at any hospital? No Last DP export: 06/25/18 9:42 Patient Name: ANABELLE ESPITIA Page 57505 at 1705 All edits/amendments must be made on the electronic document DICTATION DATE: 06/25/181704 SENIOR BUYER PLANNER: MARILU 06/25/181704 RPT#: [id number] [place] DATE: STATUS: ADM IN [facility] [address] [place] [address] END OF REPORT
--- NOTE | ~2018-06-10 | MORECARE ---
CASE MANAGEMENT DISCHARGE SUMMARY PATIENT: ANABELLE STRAUSS UNIT: [id number] ADM DATE: 06/10/18 AGE: 73 : 47 SEX: M ROOM/BED: D.2234 AUTHOR: SWETHADOC PHYSICIAN: REFERRING PHYSICIAN: MARTIN ARIAS MD DATE OF SERVICE: 06/24/18 Discharge Plan Patient Name: ANABELLE STRAUSS Facility: [facility]:[place] : 1945 Planned Disposition: Home with Home Health Anticipated Discharge Date: Discharge Date: Expected LOS: Initial Reviewer: [email or web address] Initial Review Date: 06/22/2018 Generated: 06/24/18 1:18 pm Comments DCP- Discharge Planning Updated by [email or web address]: Ngozi Benedict on 06/24/18 11:[address] Received a call from Lashaun in inpatient rehab and she states that they feel the patient will require a skilled facility rather than inpatient rehab based on his therapy notes. I spoke with patient about this and he would like me to call his ", Clementina". I called Clementina and she would like to meet with me today and choose a skilled facility. She states she is at a school function at this time. I told her when she got here to notify the nurse or planting machine operator that she needed to speak with me. CM will continue to follow and assist with discharge planning/needs. DCP- Discharge Planning Updated by [id number]: Selam Guillen on 06/22/18 1:[address] Patient Name: ANABELLE STRAUSS Admission Status: ER Accout number: [id number] Admission Date: 06-10-2018 : 1945 Admission Diagnosis:ENCEPHALOPATHY, UNSPECIFIED Attending: MARTIN ARIAS Current LOS: 12 Anticipated DC Date: Planned Disposition: Home with Home Health Primary Insurance: [employer] CHOICE PPO [facility] Discharge Planning Comments: CM spoke with patient at his bedside. Patient states that he plans on returning to his home with his girlfriend Clementina when discharged. Patient states he had Home Health with [facility] prior to admission. Patient denies any discharge needs at this time. CM will continue to follow and assist as needs with discharge planning / needs Snorkelling Instructor: Selam Guillen DCP- Discharge Planning Updated by [email or web address]: Selam Guillen on 06/15/18 1:[address] CM still unable to do intake assessment. Patient still on vent at this time. There are some issues with family dynamics regarding girlfriend and daughter. CM will continue to follow and assist with discharge planning / needs. DCP- Discharge Planning Updated by [id number]: Selam Guillen on 06/12/18 4:[address] CM attempted to visit with patient but he currently is on vent and no family available @ this time. CM will continue to follow and assist with discharge planning / needs. DCPIA - Discharge Planning Initial Assessment Updated by [email or web address]: Selam Guillen on 06/22/18 2:06 pm * Is the patient Alert and Oriented? Yes * How many steps to enter\\exit or inside your home? * PCP DR. GARCÍA * Pharmacy [facility] * Preadmission Environment Home with Family * ADLs Independent * Equipment Walker * List name and contact numbers for known caregivers / representatives who currently or will assist patient after discharge: CLEMENTINA MCELROY [phone] * Verbal permission to speak to the caregivers and representatives has been obtained from the patient. N/A * Community resources currently utilized Home Health * Please name any agencies selected above. [facility] * Additional services required to return to the preadmission environment? No * Can the patient safely return to the preadmission environment? Yes * Has this patient been hospitalized within the prior 30 days at any hospital? No Last DP export: 06/22/18 1:16 Patient Name: ANABELLE STRAUSS Page 13668 at 1218 All edits/amendments must be made on the electronic document DICTATION DATE: 06/24/18 1217 SENIOR SUPPORT ANALYST: MARILU 06/24/187 RPT#: [id number] [place] DATE: STATUS: ADM IN [facility] [address] [place] [address] END OF REPORT
--- NOTE | ~2018-06-10 | MORECARE ---
CASE MANAGEMENT DISCHARGE SUMMARY PATIENT: ANABELLE ESPITIA UNIT: [id number] ADM DATE: 06/10/18 AGE: 73 : 47 SEX: M ROOM/BED: D.2234 AUTHOR: SWETHA,DOC PHYSICIAN: REFERRING PHYSICIAN: MARTIN ARIAS MD DATE OF SERVICE: 06/26/18 Discharge Plan Patient Name: ANABELLE ESPITIA Facility: [facility]:[place] : 1945 Planned Disposition: Home with Home Health Anticipated Discharge Date: Discharge Date: Expected LOS: Initial Reviewer: [email or web address] Initial Review Date: 06/22/2018 Generated: 06/26/18 8:55 am Comments DCP- Discharge Planning Updated by [email or web address]: Ngozi Mcmullen on 06/26/18 6:[address] I do not see the stool for CDT collected yet, I had asked the primary nurse yesterday. I asked Bing today to collect stool for C. Diff if he has a BM. CM will continue to follow. DCP- Discharge Planning Updated by [id number]: Ngozi Mcmullen on 06/25/18 3:[address] Received a call from the patient's daughter (she had his security call in code) and she states that patient's girlfriend does not treat him right at home. She states as far as she knows, no one has POA. States she would like to see her father come to [place] with her when he is able to be discharged from the skilled facility. She agrees with therapy. I did give her the number to adult protective services to call if she felt she needed to call them. I also told her that he has been referred to [facility] for skilled therapy. CM will continue to follow and assist with discharge planning/needs. Annabel Espitia - DTR - [phone] DCP- Discharge Planning Updated by [email or web address]: Ngozi Mcmullen on 06/25/18 9:[address] Received a call from [facility], they will not accept patient due to medical needs. I called Chanel at [facility] and sent referral there and clinical faxed. I called Clementina Mello and informed of above and she agrees with [facility] referral (second choice). CM will continue to follow and assist with discharge planning/needs. DCP- Discharge Planning Updated by [id number]: Ngozi Mcmullen on 06/24/18 1:[address] Met with patient's girlfriend, Clementina. She and the patient agree to rehab at a skilled facility. ALPHONSO given and they chose [facility]. Referral called to [facility] and clinical faxed. CM will continue to follow and assist with discharge planning/needs. DCP- Discharge Planning Updated by [email or web address]: Ngozi Mcmullen on 06/24/18 11:[address] Received a call from Lashaun in inpatient rehab and she states that they feel the patient will require a skilled facility rather than inpatient rehab based on his therapy notes. I spoke with patient about this and he would like me to call his ", Clementina". I called Clementina and she would like to meet with me today and choose a skilled facility. She states she is at a school function at this time. I told her when she got here to notify the nurse or admin secretary that she needed to speak with me. CM will continue to follow and assist with discharge planning/needs. DCP- Discharge Planning Updated by [id number]: Selam Guillen on 06/22/18 1:[address] Patient Name: ANABELLE ESPITIA Admission Status: ER Accout number: [id number] Admission Date: 06-10-2018 : 1945 Admission Diagnosis:ENCEPHALOPATHY, UNSPECIFIED Attending: MARTIN ARIAS Current LOS: 12 Anticipated DC Date: Planned Disposition: Home with Home Health Primary Insurance: [employer] CHOICE PPO [facility] Discharge Planning Comments: CM spoke with patient at his bedside. Patient states that he plans on returning to his home with his girlfriend Clementina when discharged. Patient states he had Home Health with [facility] prior to admission. Patient denies any discharge needs at this time. CM will continue to follow and assist as needs with discharge planning / needs Production Team Advisor: Selam Guillen DCP- Discharge Planning Updated by [id number]: Selam Guillen on 06/15/18 1:[address] CM still unable to do intake assessment. Patient still on vent at this time. There are some issues with family dynamics regarding girlfriend and daughter. CM will continue to follow and assist with discharge planning / needs. DCP- Discharge Planning Updated by [id number]: Selam Sousar on 06/12/18 4:[address] CM attempted to visit with patient but he currently is on vent and no family available @ this time. CM will continue to follow and assist with discharge planning / needs. DCPIA - Discharge Planning Initial Assessment Updated by [email or web address]: Selam Wilmer on 06/22/18 2:06 pm * Is the patient Alert and Oriented? Yes * How many steps to enter\\exit or inside your home? * PCP DR. GARCÍA * Pharmacy [facility] * Preadmission Environment Home with Family * ADLs Independent * Equipment Walker * List name and contact numbers for known caregivers / representatives who currently or will assist patient after discharge: CLEMENTINA MELLO [phone] * Verbal permission to speak to the caregivers and representatives has been obtained from the patient. N/A * Community resources currently utilized Home Health * Please name any agencies selected above. [facility] * Additional services required to return to the preadmission environment? No * Can the patient safely return to the preadmission environment? Yes * Has this patient been hospitalized within the prior 30 days at any hospital? No Last DP export: 06/25/18 4:05 Patient Name: ANABELLE ESPITIA Page [id number] at 0756 All edits/amendments must be made on the electronic document DICTATION DATE: 06/26/18754 RECREATIONAL VEHICLE RESORT MANAGER: MARILU 06/26/18 0755 RPT#: [id number] DC DATE: STATUS: ADM IN [facility] [address] [place] [address] END OF REPORT
--- NOTE | ~2018-06-10 | MORECARE ---
CASE MANAGEMENT DISCHARGE SUMMARY PATIENT: ANABELLE STRAUSS UNIT: [id number] ADM DATE: 06/10/18 AGE: 73 : 46 SEX: M ROOM/BED: D.2313 AUTHOR: NAYELI POSADA PHYSICIAN: REFERRING PHYSICIAN: MARTIN ARIAS MD DATE OF SERVICE: 06/12/18 Discharge Plan Patient Name: ANABELLE STRAUSS [facility] : 1945 Planned Disposition: Anticipated Discharge Date: Discharge Date: Expected LOS: Initial Reviewer: [email or web address] Initial Review Date: 06/10/2018 Generated: 06/12/18 6:59 pm Comments DCP- Discharge Planning Updated by [id number]: Selam Guillen on 06/12/18 4:[address] CM attempted to visit with patient but he currently is on vent and no family available @ this time. CM will continue to follow and assist with discharge planning / needs. Patient Name: ANABELLE STRAUSS Page [id number] at 1759 All edits/amendments must be made on the electronic document DICTATION DATE: 06/12/181758 MILKING WORKER: MARILU 06/12/181758 RPT#: [id number] DC DATE: STATUS: ADM IN [facility] [address] [place] [address] END OF REPORT
--- NOTE | ~2018-06-10 | MORECARE ---
CASE MANAGEMENT DISCHARGE SUMMARY PATIENT: ANABELLE STRAUSS UNIT: [id number] ADM DATE: 06/10/18 AGE: 73 : 46 SEX: M ROOM/BED: D.2234 AUTHOR: SWETHADOC PHYSICIAN: REFERRING PHYSICIAN: MARTIN ARIAS MD DATE OF SERVICE: 06/26/18 Discharge Plan Patient Name: ANABELLE STRAUSS Facility: [facility]:[place] : 1945 Planned Disposition: Home with Home Health Anticipated Discharge Date: Discharge Date: Expected LOS: Initial Reviewer: [email or web address] Initial Review Date: 06/22/2018 Generated: 06/26/18 1:17 pm Comments DCP- Discharge Planning Updated by [email or web address]: Ngozi Mcmullen on 06/26/18 11:[address] I called Federica Mello ([facility]) and informed her of discharge today to [facility], she is in agreement to discharge. She will go by [facility] to sign paperwork. I notified Eleni at [facility] that she was coming and [facility] paperwork faxed to them. I called patient's daughter, Annabel, and left a message that her father was going to [facility]. He will go to a skilled (medicare) bed via ambulance today. CM will continue to follow and assist with discharge planning/needs. DCP- Discharge Planning Updated by [email or web address]: Ngozi Mcmullen on 06/26/18 10:[address] [facility] called with authorization for admission. He will need to go via ambulance. He is getting potassium for K 2.9 this morning. Cristiane is aware. She states he can have house calls draw potassium at [facility]. DC orders and clinical faxed to [facility]. CM will continue to follow and assist with discharge planning/needs. DCP- Discharge Planning Updated by [email or web address]: Ngozi Mcmullen on 06/26/18 6:[address] I do not see the stool for CDT collected yet, I had asked the primary nurse yesterday. I asked Bing today to collect stool for C. Diff if he has a BM. CM will continue to follow. DCP- Discharge Planning Updated by [id number]: Ngozi Mcmullen on 06/25/18 3:[address] Received a call from the patient's daughter (she had his security call in code) and she states that patient's girlfriend does not treat him right at home. She states as far as she knows, no one has POA. States she would like to see her father come to [place] with her when he is able to be discharged from the skilled facility. She agrees with therapy. I did give her the number to adult protective services to call if she felt she needed to call them. I also told her that he has been referred to [facility] for skilled therapy. CM will continue to follow and assist with discharge planning/needs. Annabelnabil Barajasangel - R - [phone] DCP- Discharge Planning Updated by [id number]: Ngozi Mcmullen on 06/25/18 9:[address] Received a call from [facility], they will not accept patient due to medical needs. I called Chanel at [facility] and sent referral there and clinical faxed. I called Federica Mello and informed of above and she agrees with [facility] referral (second choice). CM will continue to follow and assist with discharge planning/needs. DCP- Discharge Planning Updated by [id number]: Ngozi Mcmullen on 06/24/18 1:[address] Met with patient's girlfriend, Federica. She and the patient agree to rehab at a skilled facility. ALPHONSO given and they chose [facility]. Referral called to [facility] and clinical faxed. CM will continue to follow and assist with discharge planning/needs. DCP- Discharge Planning Updated by [email or web address]: Ngozi Mcmullen on 06/24/18 11:[address] Received a call from Lashaun in inpatient rehab and she states that they feel the patient will require a skilled facility rather than inpatient rehab based on his therapy notes. I spoke with patient about this and he would like me to call his ", Federica". I called Federica and she would like to meet with me today and choose a skilled facility. She states she is at a school function at this time. I told her when she got here to notify the nurse or confidential secretary that she needed to speak with me. CM will continue to follow and assist with discharge planning/needs. DCP- Discharge Planning Updated by [id number]: Selam Guillen on 06/22/18 1:[address] Patient Name: ANABELLE STRAUSS Admission Status: ER Accout number: [id number] Admission Date: 06-10-2018 : 1945 Admission Diagnosis:ENCEPHALOPATHY, UNSPECIFIED Attending: MARTIN ARIAS Current LOS: 12 Anticipated DC Date: Planned Disposition: Home with Home Health Primary Insurance: [employer] CHOICE PPO [facility] Discharge Planning Comments: CM spoke with patient at his bedside. Patient states that he plans on returning to his home with his girlfriend Federica when discharged. Patient states he had Home Health with [facility] prior to admission. Patient denies any discharge needs at this time. CM will continue to follow and assist as needs with discharge planning / needs Logistics Clerk: Selam Guillen DCP- Discharge Planning Updated by [id number]: Selam Guillen on 06/15/18 1:[address] CM still unable to do intake assessment. Patient still on vent at this time. There are some issues with family dynamics regarding girlfriend and daughter. CM will continue to follow and assist with discharge planning / needs. DCP- Discharge Planning Updated by [email or web address]: Selam Guillen on 06/12/18 4:[address] CM attempted to visit with patient but he currently is on vent and no family available @ this time. CM will continue to follow and assist with discharge planning / needs. DCPIA - Discharge Planning Initial Assessment Updated by [email or web address]: Selam Guillen on 06/22/18 2:06 pm * Is the patient Alert and Oriented? Yes * How many steps to enter\\exit or inside your home? * PCP DR. GARCÍA * Pharmacy [facility] * Preadmission Environment Home with Family * ADLs Independent * Equipment Walker * List name and contact numbers for known caregivers / representatives who currently or will assist patient after discharge: FEDERICA MELLO [phone] * Verbal permission to speak to the caregivers and representatives has been obtained from the patient. N/A * Community resources currently utilized Home Health * Please name any agencies selected above. [facility] * Additional services required to return to the preadmission environment? No * Can the patient safely return to the preadmission environment? Yes * Has this patient been hospitalized within the prior 30 days at any hospital? No Coverage Notice Reviewer: [email or web address] Rodriguez Mcmullen Notice Issued Date-Time: 06/26/2018 12:14 Notice Type: IM Discharge Notice Notice Delivered To: Family Member Relationship to Patient: Other Relationship Imaging Administrator Name: Federica Mello (POA) Delivery Method: PHONE - Phone [facility] Days: Prior Verbal Notification: Recipient Understood Notice: Yes Recipient Signature: Med Rec Note Co-signed by Attending: Coverage Notice Comment: IMM explained, copy left with patient, original placed in MR Last DP export: 06/26/18 11:01 Patient Name: ANABELLE STRAUSS Page [id number] at 1217 All edits/amendments must be made on the electronic document DICTATION DATE: 06/26/181215 CASHIER PARKING LOT: MARILU 06/26/181215 RPT#: [id number] DC DATE: STATUS: ADM IN [facility] [address] [place] [address] END OF REPORT
--- NOTE | ~2018-06-10 | MORECARE ---
CASE MANAGEMENT DISCHARGE SUMMARY PATIENT: ANABELLE STRAUSS UNIT: [id number] ADM DATE: 06/10/18 AGE: 73 : 46 SEX: M ROOM/BED: D.2234 AUTHOR: SWETHA,DOC PHYSICIAN: REFERRING PHYSICIAN: MARTIN ARIAS MD DATE OF SERVICE: 06/29/18 Discharge Plan Patient Name: ANABELLE STRAUSS Facility: [facility]:[place] : 1945 Planned Disposition: Home with Home Health Anticipated Discharge Date: Discharge Date: 06/26/2018 Expected LOS: 0 Initial Reviewer: [id number] Initial Review Date: 06/22/2018 Generated: 06/29/18 2:10 pm Comments DCP- Discharge Planning Updated by [email or web address]: Ngozi Mcmullen on 06/26/18 11:[address] I called Federica Mello ([facility]) and informed her of discharge today to [facility], she is in agreement to discharge. She will go by [facility] to sign paperwork. I notified Eleni at [facility] that she was coming and A paperwork faxed to them. I called patient's daughter, Annabel, and left a message that her father was going to [facility]. He will go to a skilled (medicare) bed via ambulance today. CM will continue to follow and assist with discharge planning/needs. DCP- Discharge Planning Updated by [id number]: Ngozi Mcmullen on 06/26/18 10:[address] [facility] called with authorization for admission. He will need to go via ambulance. He is getting potassium for K 2.9 this morning. Cristiane is aware. She states he can have house calls draw potassium at [facility]. DC orders and clinical faxed to [facility]. CM will continue to follow and assist with discharge planning/needs. DCP- Discharge Planning Updated by [id number]: Ngozi Mcmullen on 06/26/18 6:[address] I do not see the stool for CDT collected yet, I had asked the primary nurse yesterday. I asked Bing today to collect stool for C. Diff if he has a BM. CM will continue to follow. DCP- Discharge Planning Updated by [id number]: Ngozi Mcmullen on 06/25/18 3:[address] Received a call from the patient's daughter (she had his security call in code) and she states that patient's girlfriend does not treat him right at home. She states as far as she knows, no one has POA. States she would like to see her father come to [place] with her when he is able to be discharged from the skilled facility. She agrees with therapy. I did give her the number to adult protective services to call if she felt she needed to call them. I also told her that he has been referred to [facility] for skilled therapy. CM will continue to follow and assist with discharge planning/needs. Annabelnabil Barajasangel - DTR - [phone] DCP- Discharge Planning Updated by [id number]: Ngozi Mcmullen on 06/25/18 9:[address] Received a call from [facility], they will not accept patient due to medical needs. I called Chanel at [facility] and sent referral there and clinical faxed. I called Federica Mello and informed of above and she agrees with [facility] referral (second choice). CM will continue to follow and assist with discharge planning/needs. DCP- Discharge Planning Updated by [email or web address]: Ngozi Mcmullen on 06/24/18 1:[address] Met with patient's girlfriend, Federica. She and the patient agree to rehab at a skilled facility. ALPHONSO given and they chose [facility]. Referral called to [facility] and clinical faxed. CM will continue to follow and assist with discharge planning/needs. DCP- Discharge Planning Updated by [id number]: Ngozi Mcmullen on 06/24/18 11:[address] Received a call from Lasha[facility] in inpatient rehab and she states that they feel the patient will require a skilled facility rather than inpatient rehab based on his therapy notes. I spoke with patient about this and he would like me to call his ", Federica". I called Federica and she would like to meet with me today and choose a skilled facility. She states she is at a school function at this time. I told her when she got here to notify the nurse or ladder operator that she needed to speak with me. CM will continue to follow and assist with discharge planning/needs. DCP- Discharge Planning Updated by [id number]: Selam Guillen on 06/22/18 1:[address] Patient Name: ANABELLE STRAUSS Admission Status: ER Accout number: [id number] Admission Date: 06-10-2018 : 1945 Admission Diagnosis:ENCEPHALOPATHY, UNSPECIFIED Attending: MARTIN ARIAS Current LOS: 12 Anticipated DC Date: Planned Disposition: Home with Home Health Primary Insurance: [employer] CHOICE PPO [facility] Discharge Planning Comments: CM spoke with patient at his bedside. Patient states that he plans on returning to his home with his girlfriend Federica when discharged. Patient states he had Home Health with [facility] prior to admission. Patient denies any discharge needs at this time. CM will continue to follow and assist as needs with discharge planning / needs Property Claim Rep: Selam Guillen DCP- Discharge Planning Updated by [id number]: Selam Guillen on 06/15/18 1:[address] CM still unable to do intake assessment. Patient still on vent at this time. There are some issues with family dynamics regarding girlfriend and daughter. CM will continue to follow and assist with discharge planning / needs. DCP- Discharge Planning Updated by [email or web address]: Selam Guillen on 06/12/18 4:[address] CM attempted to visit with patient but he currently is on vent and no family available @ this time. CM will continue to follow and assist with discharge planning / needs. DCPIA - Discharge Planning Initial Assessment Updated by [id number]: Selam Guillen on 06/22/18 2:06 pm * Is the patient Alert and Oriented? Yes * How many steps to enter\\exit or inside your home? * PCP DR. GARCÍA * Pharmacy [facility] * Preadmission Environment Home with Family * ADLs Independent * Equipment Walker * List name and contact numbers for known caregivers / representatives who currently or will assist patient after discharge: FEDERICA MELLO [phone] * Verbal permission to speak to the caregivers and representatives has been obtained from the patient. N/A * Community resources currently utilized Home Health * Please name any agencies selected above. [facility] * Additional services required to return to the preadmission environment? No * Can the patient safely return to the preadmission environment? Yes * Has this patient been hospitalized within the prior 30 days at any hospital? No Coverage Notice Reviewer: [id number] Rodriguez Mcmullen Notice Issued Date-Time: 06/26/2018 12:14 Notice Type: IM Discharge Notice Notice Delivered To: Family Member Relationship to Patient: Other Relationship Supervisor Modern Languages Name: Federica Mello (POA) Delivery Method: PHONE - Phone [facility]onel Days: Prior Verbal Notification: Recipient Understood Notice: Yes Recipient Signature: Med Rec Note Co-signed by Attending: Coverage Notice Comment: IMM explained, copy left with patient, original placed in MR Last DP export: 06/26/18 11:17 Patient Name: ANABELLE STRAUSS Page 37529 at 1310 All edits/amendments must be made on the electronic document DICTATION DATE: 06/29/181308 VICE PRESIDENT LENDING: MARILU 06/29/18 1309 RPT#: [id number] DC DATE:06/26/18 STATUS: DIS IN [facility] [address] [place] [address] END OF REPORT
--- NOTE | ~2018-06-10 | MORECARE ---
CASE MANAGEMENT DISCHARGE SUMMARY PATIENT: ANABELLE STRAUSS UNIT: [id number] ADM DATE: 06/10/18 AGE: 73 : 47 SEX: M ROOM/BED: D.2234 AUTHOR: NAYELI POSADA PHYSICIAN: REFERRING PHYSICIAN: MARTIN ARIAS MD DATE OF SERVICE: 06/25/18 Discharge Plan Patient Name: ANABELLE STRAUSS Facility: [facility]:[place] : 1945 Planned Disposition: Home with Home Health Anticipated Discharge Date: Discharge Date: Expected LOS: Initial Reviewer: [email or web address] Initial Review Date: 06/22/2018 Generated: 06/25/18 11:34 am Comments DCP- Discharge Planning Updated by [email or web address]: Ngozi Sharmada on 06/24/18 1:[address] Met with patient's girlfriend, Clementina. She and the patient agree to rehab at a skilled facility. ALPHONSO given and they chose [facility]. Referral called to [facility] and clinical faxed. CM will continue to follow and assist with discharge planning/needs. DCP- Discharge Planning Updated by [id number]: Ngozi Benedict on 06/24/18 11:[address] Received a call from Lashaun in inpatient rehab and she states that they feel the patient will require a skilled facility rather than inpatient rehab based on his therapy notes. I spoke with patient about this and he would like me to call his ", Clementina". I called Clementina and she would like to meet with me today and choose a skilled facility. She states she is at a school function at this time. I told her when she got here to notify the nurse or school secretary that she needed to speak with me. CM will continue to follow and assist with discharge planning/needs. DCP- Discharge Planning Updated by [id number]: Selam Guillen on 06/22/18 1:[address] Patient Name: ANABELLE STRAUSS Admission Status: ER Accout number: [id number] Admission Date: 06-10-2018 : 1945 Admission Diagnosis:ENCEPHALOPATHY, UNSPECIFIED Attending: MARTIN ARIAS Current LOS: 12 Anticipated DC Date: Planned Disposition: Home with Home Health Primary Insurance: [employer] [facility] Discharge Planning Comments: CM spoke with patient at his bedside. Patient states that he plans on returning to his home with his girlfriend Clementina when discharged. Patient states he had Home Health with [facility] prior to admission. Patient denies any discharge needs at this time. CM will continue to follow and assist as needs with discharge planning / needs Hot Roller: Selam Guillen DCP- Discharge Planning Updated by [email or web address]: Selam Guillen on 06/15/18 1:[address] CM still unable to do intake assessment. Patient still on vent at this time. There are some issues with family dynamics regarding girlfriend and daughter. CM will continue to follow and assist with discharge planning / needs. DCP- Discharge Planning Updated by [id number]: Selam Guillen on 06/12/18 4:[address] CM attempted to visit with patient but he currently is on vent and no family available @ this time. CM will continue to follow and assist with discharge planning / needs. DCPIA - Discharge Planning Initial Assessment Updated by [id number]: Selam Guillen on 06/22/18 2:06 pm * Is the patient Alert and Oriented? Yes * How many steps to enter\\exit or inside your home? * PCP DR. GARCÍA * Pharmacy [facility] * Preadmission Environment Home with Family * ADLs Independent * Equipment Walker * List name and contact numbers for known caregivers / representatives who currently or will assist patient after discharge: CLEMENTINA MCELROY [phone] * Verbal permission to speak to the caregivers and representatives has been obtained from the patient. N/A * Community resources currently utilized Home Health * Please name any agencies selected above. [facility] * Additional services required to return to the preadmission environment? No * Can the patient safely return to the preadmission environment? Yes * Has this patient been hospitalized within the prior 30 days at any hospital? No External Providers External Provider: [facility] Next Contact Date: Service Request Date: Service Type: Resolution: Reviewer: Comments: Last DP export: 06/24/18 1:25 Patient Name: ANABELLE STRAUSS Page [id number] at 1035 All edits/amendments must be made on the electronic document DICTATION DATE: 06/25/18 103 ALIGNMENT SPECIALIST: MARILU 06/25/18 103 RPT#: [id number] MD DATE: STATUS: ADM IN [facility] [address] [place] [address] END OF REPORT
[2018-06-10] MEDS ORDERED: AVAPRO150 MG PO (05:47)
[2018-06-10] MEDS ORDERED: PROTONIX40 MG PO (05:47)
[2018-06-10 06:27] LABS: BASOPHILS 0.4 % (0-2); EOSINOPHILS 0.5 % (0-7); HEMATOCRIT 36.6 % (42.0-54.0); HEMOGLOBIN 12.4 g/dL (13.5-17.5); IMMATURE GRANULOCYTES 0.5 % (0-5); LYMPHOCYTES 8.6 % (15-50); MCH 31.7 pg (26.0-34.0); MCHC 33.9 g/dL (31.0-37.0); MCV 93.6 fL (80.0-100.0); MEAN PLATELET VOLUME 9.6 fL (7.4-10.4); MONOCYTES 7.4 % (2-11); NEUTROPHILS 82.6 % (40-80); PLATELET COUNT 195 10x3/uL (130-400); RBC 3.91 10x6/uL (4.20-6.10); RDW 13.6 % (11.5-14.5)
[2018-06-10 06:31] LABS: APTT 28.4 SECONDS (22.8-39.4); INR 1.16 (0.85-1.17); PROTIME 14.3 SECONDS (11.6-15.0)
[2018-06-10 06:38] LABS: ALBUMIN 2.7 g/dL (3.4-5.0); ALKALINE PHOSPHATASE 94 U/L (46-116); ALT (SGPT) 93 U/L (10-68); BILIRUBIN - TOTAL 0.63 mg/dL (0.2-1.3); CALCIUM 9.4 mg/dL (8.5-10.1); CARBON DIOXIDE 18.8 mmol/L (21.0-32.0); CHLORIDE - SERUM 109 mmol/L (98-107); CKMB 2.2 U/L (0.0-3.6); CREATINE KINASE 76 UL (21-232); CREATININE - SERUM 2.6 mg/dL (0.6-1.3); PROTEIN - SERUM 6.5 g/dL (6.4-8.2); SODIUM 143 mmol/L (136-145); TROPONIN-I < 0.017 ng/mL (0.000-0.060); UREA NITROGEN 23 mg/dL (7-18); eGFR NON AFRICAN AMERICAN 26 mL/min (90-120)
[2018-06-10 06:39] LABS: CALC OSMOLALITY 295 mosm/kg (275-300); GLUCOSE 219 mg/dL (74-106)
[2018-06-10 06:40] LABS: POTASSIUM - SERUM 2.7 mmol/L (3.5-5.1)
[2018-06-10 11:29] LABS: CKMB 4.7 U/L (0.0-3.6); TROPONIN-I < 0.017 ng/mL (0.000-0.060)
[2018-06-10 11:30] LABS: CREATINE KINASE 260 UL (21-232)
[2018-06-10 11:57] LABS: UDS - AMPHET NEGATIVE QUAL (NEGATIVE); UDS - BARB NEGATIVE QUAL (NEGATIVE); UDS - BENZO NEGATIVE QUAL (NEGATIVE); UDS - COCAINE NEGATIVE QUAL (NEGATIVE); UDS - OPIATE NEGATIVE QUAL (NEGATIVE); UDS - PCP NEGATIVE QUAL (NEGATIVE); UDS - THC NEGATIVE QUAL (NEGATIVE)
[2018-06-10 12:05] LABS: APPEARANCE CLEAR (CLEAR); BACTERIA FEW /hpf (NONE SEEN); BILIRUBIN NEGATIVE (NEGATIVE); COLOR YELLOW (YELLOW); EPITHELIAL CELLS OCC /hpf (0-5); GLUCOSE 500 mg/dL (NEGATIVE); KETONE NEGATIVE (NEGATIVE); NITRITE NEGATIVE (NEGATIVE); PROTEIN 3+ mg/dL (NEGATIVE); RED CELLS - URINE 0-5 /hpf (0-5); UROBILINOGEN NORMAL (NORMAL); WHITE CELLS - URINE RARE /hpf (0-5)
[2018-06-10 12:06] LABS: MUCUS <1+ /lpf (NONE SEEN)
[2018-06-10 16:01] LABS: CKMB 3.7 U/L (0.0-3.6); CREATINE KINASE 160 UL (21-232); TROPONIN-I 0.017 ng/mL (0.000-0.060)
[2018-06-10 22:27] LABS: CKMB 3.2 U/L (0.0-3.6); CREATINE KINASE 176 UL (21-232); TROPONIN-I 0.035 ng/mL (0.000-0.060)
[2018-06-11] VITALS (30 sets, daily range): BP systolic 114–199; BP diastolic 58–87; BMI 28.9
[2018-06-11 05:38] LABS: BASOPHILS 0.2 % (0-2); EOSINOPHILS 2.2 % (0-7); HEMATOCRIT 35.1 % (42.0-54.0); HEMOGLOBIN 11.7 g/dL (13.5-17.5); IMMATURE GRANULOCYTES 0.5 % (0-5); MCH 31.2 pg (26.0-34.0); MCHC 33.3 g/dL (31.0-37.0); MCV 93.6 fL (80.0-100.0); MEAN PLATELET VOLUME 9.5 fL (7.4-10.4); MONOCYTES 10.4 % (2-11); NEUTROPHILS 76.7 % (40-80); PLATELET COUNT 175 10x3/uL (130-400); RBC 3.75 10x6/uL (4.20-6.10); RDW 13.7 % (11.5-14.5); WBC 9.7 10x3/uL (4.8-10.8)
[2018-06-11 05:53] LABS: ALBUMIN 2.1 g/dL (3.4-5.0); BILIRUBIN - TOTAL 0.5 mg/dL (0.2-1.3); CALCIUM 9.1 mg/dL (8.5-10.1); CARBON DIOXIDE 19.4 mmol/L (21.0-32.0); CREATININE - SERUM 2.9 mg/dL (0.6-1.3); MAGNESIUM - SERUM 1.8 mg/dL (1.8-2.4); PHOSPHOROUS 2.5 mg/dL (2.5-4.9); PROTEIN - SERUM 5.3 g/dL (6.4-8.2)
[2018-06-11 05:57] LABS: ANION GAP 14.3 mmol/L (8-16); POTASSIUM - SERUM 3.7 mmol/L (3.5-5.1)
[2018-06-12] VITALS (51 sets, daily range): BP systolic 154–200; BP diastolic 65–83
[2018-06-12 04:28] LABS: BASOPHILS 0.1 % (0-2); EOSINOPHILS 0.4 % (0-7); HEMATOCRIT 39.5 % (42.0-54.0); HEMOGLOBIN 13.1 g/dL (13.5-17.5); IMMATURE GRANULOCYTES 0.5 % (0-5); LYMPHOCYTES 5.1 % (15-50); MCH 31.4 pg (26.0-34.0); MCHC 33.2 g/dL (31.0-37.0); MCV 94.7 fL (80.0-100.0); MEAN PLATELET VOLUME 9.7 fL (7.4-10.4); MONOCYTES 9.2 % (2-11); NEUTROPHILS 84.7 % (40-80); PLATELET COUNT 179 10x3/uL (130-400); RBC 4.17 10x6/uL (4.20-6.10); RDW 14.1 % (11.5-14.5)
[2018-06-12 04:49] LABS: ALBUMIN 2.3 g/dL (3.4-5.0); ANION GAP 14.7 mmol/L (8-16); BILIRUBIN - TOTAL 0.65 mg/dL (0.2-1.3); CALCIUM 9.8 mg/dL (8.5-10.1); CARBON DIOXIDE 19.7 mmol/L (21.0-32.0); CREATININE - SERUM 3.2 mg/dL (0.6-1.3); MAGNESIUM - SERUM 2.1 mg/dL (1.8-2.4); PHOSPHOROUS 3.5 mg/dL (2.5-4.9); POTASSIUM - SERUM 3.4 mmol/L (3.5-5.1); PROTEIN - SERUM 6.2 g/dL (6.4-8.2)
[2018-06-13] VITALS (81 sets, daily range): BP systolic 149–187; BP diastolic 62–103
[2018-06-13 03:42] LABS: BASOPHILS 0.1 % (0-2); EOSINOPHILS 0.5 % (0-7); HEMATOCRIT 36.9 % (42.0-54.0); HEMOGLOBIN 12.2 g/dL (13.5-17.5); IMMATURE GRANULOCYTES 0.4 % (0-5); LYMPHOCYTES 3.8 % (15-50); MCH 31.5 pg (26.0-34.0); MCHC 33.1 g/dL (31.0-37.0); MCV 95.3 fL (80.0-100.0); MEAN PLATELET VOLUME 9.4 fL (7.4-10.4); MONOCYTES 11.1 % (2-11); NEUTROPHILS 84.1 % (40-80); PLATELET COUNT 173 10x3/uL (130-400); RBC 3.87 10x6/uL (4.20-6.10); RDW 14.5 % (11.5-14.5); WBC 15.4 10x3/uL (4.8-10.8)
[2018-06-13 03:59] LABS: ALBUMIN 2.1 g/dL (3.4-5.0); BILIRUBIN - TOTAL 0.74 mg/dL (0.2-1.3); CALCIUM 9.8 mg/dL (8.5-10.1); CARBON DIOXIDE 20.7 mmol/L (21.0-32.0); CREATININE - SERUM 3.3 mg/dL (0.6-1.3); MAGNESIUM - SERUM 2.2 mg/dL (1.8-2.4); PHOSPHOROUS 3.3 mg/dL (2.5-4.9); POTASSIUM - SERUM 3.7 mmol/L (3.5-5.1); PROTEIN - SERUM 5.9 g/dL (6.4-8.2)
[2018-06-13 12:32] LABS: UDS - AMPHET NEGATIVE QUAL (NEGATIVE); UDS - BARB NEGATIVE QUAL (NEGATIVE); UDS - BENZO NEGATIVE QUAL (NEGATIVE); UDS - COCAINE NEGATIVE QUAL (NEGATIVE); UDS - OPIATE NEGATIVE QUAL (NEGATIVE); UDS - PCP NEGATIVE QUAL (NEGATIVE); UDS - THC NEGATIVE QUAL (NEGATIVE)
[2018-06-14] VITALS (68 sets, daily range): BP systolic 123–171; BP diastolic 46–97
[2018-06-14 05:26] LABS: BASOPHILS 0.1 % (0-2); EOSINOPHILS 0.5 % (0-7); HEMATOCRIT 35.5 % (42.0-54.0); HEMOGLOBIN 11.9 g/dL (13.5-17.5); IMMATURE GRANULOCYTES 0.6 % (0-5); LYMPHOCYTES 4.4 % (15-50); MCH 32.1 pg (26.0-34.0); MCHC 33.5 g/dL (31.0-37.0); MCV 95.7 fL (80.0-100.0); MEAN PLATELET VOLUME 9.8 fL (7.4-10.4); MONOCYTES 10.9 % (2-11); NEUTROPHILS 83.5 % (40-80); PLATELET COUNT 165 10x3/uL (130-400); RBC 3.71 10x6/uL (4.20-6.10); RDW 14.7 % (11.5-14.5); WBC 14.5 10x3/uL (4.8-10.8)
[2018-06-14 06:02] LABS: BILIRUBIN - TOTAL 0.93 mg/dL (0.2-1.3); CALCIUM 9.9 mg/dL (8.5-10.1); CARBON DIOXIDE 18.5 mmol/L (21.0-32.0); CREATININE - SERUM 3.5 mg/dL (0.6-1.3); MAGNESIUM - SERUM 2.5 mg/dL (1.8-2.4); PHOSPHOROUS 3.4 mg/dL (2.5-4.9); POTASSIUM - SERUM 3.5 mmol/L (3.5-5.1); PROTEIN - SERUM 5.8 g/dL (6.4-8.2)
[2018-06-15] VITALS (24 sets, daily range): BP systolic 110–157; BP diastolic 46–63; Ht 167.6 cm; Wt 85.1 kg
[2018-06-15 04:55] LABS: BASOPHILS 0.2 % (0-2); EOSINOPHILS 0.8 % (0-7); HEMATOCRIT 35.9 % (42.0-54.0); HEMOGLOBIN 11.7 g/dL (13.5-17.5); IMMATURE GRANULOCYTES 1.1 % (0-5); LYMPHOCYTES 6.8 % (15-50); MCH 31.4 pg (26.0-34.0); MCHC 32.6 g/dL (31.0-37.0); MCV 96.2 fL (80.0-100.0); MEAN PLATELET VOLUME 10.1 fL (7.4-10.4); MONOCYTES 12.1 % (2-11); PLATELET COUNT 157 10x3/uL (130-400); RBC 3.73 10x6/uL (4.20-6.10); RDW 14.8 % (11.5-14.5); WBC 13.2 10x3/uL (4.8-10.8)
[2018-06-15 05:12] LABS: ALBUMIN 1.9 g/dL (3.4-5.0); BILIRUBIN - TOTAL 0.62 mg/dL (0.2-1.3); CALCIUM 9.6 mg/dL (8.5-10.1); CARBON DIOXIDE 18.5 mmol/L (21.0-32.0); CREATININE - SERUM 3.9 mg/dL (0.6-1.3); POTASSIUM - SERUM 3.5 mmol/L (3.5-5.1); PROTEIN - SERUM 5.9 g/dL (6.4-8.2)
[2018-06-15 06:00] LABS: MAGNESIUM - SERUM 2.9 mg/dL (1.8-2.4); PHOSPHOROUS 2.9 mg/dL (2.5-4.9)
[2018-06-16] VITALS (24 sets, daily range): BP systolic 128–164; BP diastolic 51–92
[2018-06-16 06:08] LABS: BASOPHILS 0.1 % (0-2); HEMATOCRIT 33.3 % (42.0-54.0); HEMOGLOBIN 10.7 g/dL (13.5-17.5); LYMPHOCYTES 7.5 % (15-50); MCH 31.2 pg (26.0-34.0); MCHC 32.1 g/dL (31.0-37.0); MCV 97.1 fL (80.0-100.0); MEAN PLATELET VOLUME 10.4 fL (7.4-10.4); MONOCYTES 11.7 % (2-11); NEUTROPHILS 77.7 % (40-80); PLATELET COUNT 145 10x3/uL (130-400); RBC 3.43 10x6/uL (4.20-6.10); RDW 14.8 % (11.5-14.5); WBC 10.5 10x3/uL (4.8-10.8)
[2018-06-16 06:23] LABS: ALBUMIN 1.5 g/dL (3.4-5.0); BILIRUBIN - TOTAL 0.54 mg/dL (0.2-1.3); CALCIUM 9.2 mg/dL (8.5-10.1); CARBON DIOXIDE 19.1 mmol/L (21.0-32.0); CREATININE - SERUM 4.2 mg/dL (0.6-1.3); POTASSIUM - SERUM 3.7 mmol/L (3.5-5.1); PROTEIN - SERUM 5.4 g/dL (6.4-8.2)
[2018-06-16 06:38] LABS: ANION GAP 14.6 mmol/L (8-16)
[2018-06-17] VITALS (24 sets, daily range): BP systolic 111–150; BP diastolic 49–61
[2018-06-17 06:24] LABS: BASOPHILS 0.1 % (0-2); EOSINOPHILS 2.8 % (0-7); HEMATOCRIT 32.5 % (42.0-54.0); HEMOGLOBIN 10.5 g/dL (13.5-17.5); LYMPHOCYTES 5.4 % (15-50); MCHC 32.3 g/dL (31.0-37.0); MCV 95.9 fL (80.0-100.0); MEAN PLATELET VOLUME 10.5 fL (7.4-10.4); MONOCYTES 9.8 % (2-11); NEUTROPHILS 80.9 % (40-80); PLATELET COUNT 153 10x3/uL (130-400); RBC 3.39 10x6/uL (4.20-6.10); RDW 14.5 % (11.5-14.5); WBC 10.3 10x3/uL (4.8-10.8)
[2018-06-17 06:45] LABS: ALBUMIN 1.4 g/dL (3.4-5.0); ANION GAP 14.6 mmol/L (8-16); BILIRUBIN - TOTAL 0.47 mg/dL (0.2-1.3); CALCIUM 9.3 mg/dL (8.5-10.1); CARBON DIOXIDE 19.8 mmol/L (21.0-32.0); CREATININE - SERUM 4.1 mg/dL (0.6-1.3); POTASSIUM - SERUM 3.4 mmol/L (3.5-5.1); PROTEIN - SERUM 5.3 g/dL (6.4-8.2)
[2018-06-18] VITALS (23 sets, daily range): BP systolic 115–165; BP diastolic 47–83
[2018-06-18 05:17] LABS: BASOPHILS 0.2 % (0-2); EOSINOPHILS 2.4 % (0-7); HEMATOCRIT 30.6 % (42.0-54.0); IMMATURE GRANULOCYTES 1.5 % (0-5); LYMPHOCYTES 6.4 % (15-50); MCH 30.8 pg (26.0-34.0); MCHC 32.7 g/dL (31.0-37.0); MCV 94.2 fL (80.0-100.0); MEAN PLATELET VOLUME 10.6 fL (7.4-10.4); MONOCYTES 11.9 % (2-11); NEUTROPHILS 77.6 % (40-80); PLATELET COUNT 158 10x3/uL (130-400); RBC 3.25 10x6/uL (4.20-6.10); RDW 13.8 % (11.5-14.5); WBC 11.9 10x3/uL (4.8-10.8)
[2018-06-18 06:07] LABS: ALBUMIN 1.3 g/dL (3.4-5.0); ANION GAP 15.2 mmol/L (8-16); BILIRUBIN - TOTAL 0.45 mg/dL (0.2-1.3); CALCIUM 9.2 mg/dL (8.5-10.1); CARBON DIOXIDE 17.3 mmol/L (21.0-32.0); CREATININE - SERUM 3.8 mg/dL (0.6-1.3); MAGNESIUM - SERUM 2.4 mg/dL (1.8-2.4); PHOSPHOROUS 3.6 mg/dL (2.5-4.9); POTASSIUM - SERUM 3.5 mmol/L (3.5-5.1)
[2018-06-18 06:55] LABS: % SATURATION 18 % (15-55); IRON 23 ug/dl (35-150); TOTAL IRON BIND CAPACITY 124 ug/dl (260-445); UNSAT IRON BIND CAPACITY 101 ug/dl (150-375)
[2018-06-19] VITALS (22 sets, daily range): BP systolic 115–168; BP diastolic 42–96
[2018-06-19 07:26] LABS: BASOPHILS 0.2 % (0-2); EOSINOPHILS 1.6 % (0-7); HEMOGLOBIN 10.4 g/dL (13.5-17.5); IMMATURE GRANULOCYTES 1.8 % (0-5); LYMPHOCYTES 3.2 % (15-50); MCH 30.9 pg (26.0-34.0); MCHC 33.5 g/dL (31.0-37.0); MEAN PLATELET VOLUME 10.7 fL (7.4-10.4); MONOCYTES 10.2 % (2-11); PLATELET COUNT 178 10x3/uL (130-400); RBC 3.37 10x6/uL (4.20-6.10); RDW 13.6 % (11.5-14.5); WBC 14.2 10x3/uL (4.8-10.8)
[2018-06-19 09:01] LABS: ALBUMIN 1.4 g/dL (3.4-5.0); ANION GAP 15.6 mmol/L (8-16); BILIRUBIN - TOTAL 0.43 mg/dL (0.2-1.3); CALCIUM 9.2 mg/dL (8.5-10.1); CARBON DIOXIDE 19.5 mmol/L (21.0-32.0); CREATININE - SERUM 3.8 mg/dL (0.6-1.3); POTASSIUM - SERUM 3.1 mmol/L (3.5-5.1); PROTEIN - SERUM 5.2 g/dL (6.4-8.2)
[2018-06-19 19:25] LABS: APPEARANCE HAZY (CLEAR); BILIRUBIN NEGATIVE (NEGATIVE); COLOR YELLOW (YELLOW); GLUCOSE 50 mg/dL (NEGATIVE); KETONE NEGATIVE (NEGATIVE); NITRITE POSITIVE (NEGATIVE); PROTEIN 1+ mg/dL (NEGATIVE); SPECIFIC GRAVITY 1.015 (1.005-1.020); UROBILINOGEN NORMAL (NORMAL)
[2018-06-19 19:30] LABS: BACTERIA MANY /hpf (NONE SEEN); EPITHELIAL CELLS 0-5 /hpf (0-5); RED CELLS - URINE 0-5 /hpf (0-5); WHITE CELLS - URINE 25-50 /hpf (0-5)
[2018-06-19 19:31] LABS: AMORPHOUS SEDIMENT <1+ /lpf (NONE SEEN)
[2018-06-20] VITALS (24 sets, daily range): BP systolic 87–170; BP diastolic 42–99
[2018-06-20 05:15] LABS: BASOPHILS 0.1 % (0-2); EOSINOPHILS 1.8 % (0-7); HEMATOCRIT 30.2 % (42.0-54.0); HEMOGLOBIN 10.1 g/dL (13.5-17.5); IMMATURE GRANULOCYTES 1.9 % (0-5); MCH 30.6 pg (26.0-34.0); MCHC 33.4 g/dL (31.0-37.0); MCV 91.5 fL (80.0-100.0); MEAN PLATELET VOLUME 10.2 fL (7.4-10.4); MONOCYTES 10.6 % (2-11); NEUTROPHILS 80.6 % (40-80); PLATELET COUNT 215 10x3/uL (130-400); RDW 13.4 % (11.5-14.5); WBC 14.9 10x3/uL (4.8-10.8)
[2018-06-20 05:44] LABS: ANION GAP 11.9 mmol/L (8-16); CALCIUM 9.2 mg/dL (8.5-10.1); CREATININE - SERUM 3.5 mg/dL (0.6-1.3); PHOSPHOROUS 3.3 mg/dL (2.5-4.9)
[2018-06-20 05:47] LABS: POTASSIUM - SERUM 2.9 mmol/L (3.5-5.1)
[2018-06-21] VITALS (24 sets, daily range): BP systolic 75–112; BP diastolic 37–96
[2018-06-21 05:32] LABS: BASOPHILS 0.3 % (0-2); EOSINOPHILS 2.6 % (0-7); HEMOGLOBIN 9.4 g/dL (13.5-17.5); IMMATURE GRANULOCYTES 4.3 % (0-5); MCH 31.2 pg (26.0-34.0); MCHC 33.6 g/dL (31.0-37.0); MEAN PLATELET VOLUME 9.9 fL (7.4-10.4); MONOCYTES 9.5 % (2-11); NEUTROPHILS 75.3 % (40-80); PLATELET COUNT 229 10x3/uL (130-400); RBC 3.01 10x6/uL (4.20-6.10); RDW 13.6 % (11.5-14.5)
[2018-06-21 05:36] LABS: WBC 10.7 10x3/uL (4.8-10.8)
[2018-06-21 05:45] LABS: ANION GAP 12.4 mmol/L (8-16); CALCIUM 8.8 mg/dL (8.5-10.1); CARBON DIOXIDE 24.4 mmol/L (21.0-32.0); CREATININE - SERUM 3.5 mg/dL (0.6-1.3); PHOSPHOROUS 3.4 mg/dL (2.5-4.9)
[2018-06-21 05:48] LABS: POTASSIUM - SERUM 3.8 mmol/L (3.5-5.1)
[2018-06-22] VITALS (17 sets, daily range): BP systolic 69–167; BP diastolic 40–75
[2018-06-22 05:15] LABS: BASOPHILS 0.2 % (0-2); EOSINOPHILS 2.2 % (0-7); HEMATOCRIT 27.5 % (42.0-54.0); HEMOGLOBIN 9.1 g/dL (13.5-17.5); IMMATURE GRANULOCYTES 4.5 % (0-5); MCH 30.5 pg (26.0-34.0); MCHC 33.1 g/dL (31.0-37.0); MCV 92.3 fL (80.0-100.0); MEAN PLATELET VOLUME 9.8 fL (7.4-10.4); MONOCYTES 9.1 % (2-11); PLATELET COUNT 267 10x3/uL (130-400); RBC 2.98 10x6/uL (4.20-6.10); RDW 13.5 % (11.5-14.5); WBC 12.1 10x3/uL (4.8-10.8)
[2018-06-22 05:27] LABS: ANION GAP 14.3 mmol/L (8-16); CALCIUM 8.6 mg/dL (8.5-10.1); CARBON DIOXIDE 21.7 mmol/L (21.0-32.0); PHOSPHOROUS 3.7 mg/dL (2.5-4.9)
[2018-06-23 05:41] LABS: BASOPHILS 0.2 % (0-2); HEMATOCRIT 27.2 % (42.0-54.0); HEMOGLOBIN 9.3 g/dL (13.5-17.5); IMMATURE GRANULOCYTES 4.7 % (0-5); MCH 31.1 pg (26.0-34.0); MCHC 34.2 g/dL (31.0-37.0); MEAN PLATELET VOLUME 9.8 fL (7.4-10.4); MONOCYTES 8.2 % (2-11); NEUTROPHILS 77.9 % (40-80); PLATELET COUNT 277 10x3/uL (130-400); RBC 2.99 10x6/uL (4.20-6.10); RDW 13.6 % (11.5-14.5); WBC 12.2 10x3/uL (4.8-10.8)
[2018-06-23 05:46] VITALS: BP 134/84
[2018-06-23 06:04] LABS: ANION GAP 14.1 mmol/L (8-16); CALCIUM 9.1 mg/dL (8.5-10.1); CARBON DIOXIDE 20.7 mmol/L (21.0-32.0); CREATININE - SERUM 4.2 mg/dL (0.6-1.3); PHOSPHOROUS 4.1 mg/dL (2.5-4.9)
[2018-06-23 06:49] LABS: POTASSIUM - SERUM 2.8 mmol/L (3.5-5.1)
[2018-06-23 08:33] VITALS: BP 149/54
[2018-06-23 13:47] VITALS: BP 107/80
[2018-06-23 16:55] VITALS: BP 124/42
[2018-06-23 20:00] VITALS: BP 116/48
[2018-06-24] VITALS: BP 116/48
[2018-06-24 04:00] VITALS: BP 135/59
[2018-06-24 08:37] VITALS: BP 146/65
[2018-06-24 09:04] LABS: BASOPHILS 0.1 % (0-2); EOSINOPHILS 2.2 % (0-7); HEMATOCRIT 28.1 % (42.0-54.0); HEMOGLOBIN 9.4 g/dL (13.5-17.5); IMMATURE GRANULOCYTES 4.2 % (0-5); LYMPHOCYTES 6.7 % (15-50); MCH 30.5 pg (26.0-34.0); MCHC 33.5 g/dL (31.0-37.0); MCV 91.2 fL (80.0-100.0); MEAN PLATELET VOLUME 9.4 fL (7.4-10.4); MONOCYTES 8.2 % (2-11); NEUTROPHILS 78.6 % (40-80); PLATELET COUNT 315 10x3/uL (130-400); RBC 3.08 10x6/uL (4.20-6.10); RDW 13.9 % (11.5-14.5); WBC 13.5 10x3/uL (4.8-10.8)
[2018-06-24 09:17] LABS: ANION GAP 15.3 mmol/L (8-16); CALCIUM 9.2 mg/dL (8.5-10.1); CARBON DIOXIDE 19.8 mmol/L (21.0-32.0); CREATININE - SERUM 3.8 mg/dL (0.6-1.3); PHOSPHOROUS 3.8 mg/dL (2.5-4.9); POTASSIUM - SERUM 3.1 mmol/L (3.5-5.1)
[2018-06-24 12:45] VITALS: BP 116/42
[2018-06-24 16:18] VITALS: BP 121/43
[2018-06-24 20:54] VITALS: BP 138/50
[2018-06-25 01:05] VITALS: BP 149/50
[2018-06-25 06:20] LABS: BASOPHILS 0.1 % (0-2); EOSINOPHILS 2.4 % (0-7); HEMATOCRIT 26.9 % (42.0-54.0); HEMOGLOBIN 9.2 g/dL (13.5-17.5); IMMATURE GRANULOCYTES 2.8 % (0-5); LYMPHOCYTES 5.4 % (15-50); MCHC 34.2 g/dL (31.0-37.0); MCV 90.6 fL (80.0-100.0); MONOCYTES 6.6 % (2-11); NEUTROPHILS 82.7 % (40-80); PLATELET COUNT 289 10x3/uL (130-400); RBC 2.97 10x6/uL (4.20-6.10); RDW 14.3 % (11.5-14.5)
[2018-06-25 06:31] LABS: ANION GAP 14.6 mmol/L (8-16); CALCIUM 8.7 mg/dL (8.5-10.1); CARBON DIOXIDE 19.4 mmol/L (21.0-32.0); CREATININE - SERUM 3.6 mg/dL (0.6-1.3)
[2018-06-25 08:43] VITALS: BP 144/66
[2018-06-25 12:10] VITALS: BP 129/55
[2018-06-25 12:37] LABS: APPEARANCE HAZY (CLEAR); BILIRUBIN NEGATIVE (NEGATIVE); COLOR YELLOW (YELLOW); GLUCOSE NEGATIVE (NEGATIVE); KETONE NEGATIVE (NEGATIVE); NITRITE NEGATIVE (NEGATIVE); PROTEIN 1+ mg/dL (NEGATIVE); SPECIFIC GRAVITY 1.015 (1.005-1.020); UROBILINOGEN NORMAL (NORMAL)
[2018-06-25 12:47] LABS: BACTERIA MODERATE /hpf (NONE SEEN); EPITHELIAL CELLS 0-5 /hpf (0-5); MUCUS <1+ /lpf (NONE SEEN); RED CELLS - URINE 0-5 /hpf (0-5)
[2018-06-25 16:12] VITALS: BP 108/51
[2018-06-25 20:00] VITALS: BP 116/59
[2018-06-26 00:43] VITALS: BP 149/66
[2018-06-26 04:00] VITALS: BP 157/64
[2018-06-26 08:34] VITALS: BP 148/62
[2018-06-26 09:55] LABS: BASOPHILS 0.2 % (0-2); EOSINOPHILS 4.6 % (0-7); HEMOGLOBIN 9.3 g/dL (13.5-17.5); IMMATURE GRANULOCYTES 2.6 % (0-5); LYMPHOCYTES 6.9 % (15-50); MCH 31.2 pg (26.0-34.0); MCHC 34.4 g/dL (31.0-37.0); MCV 90.6 fL (80.0-100.0); MEAN PLATELET VOLUME 9.2 fL (7.4-10.4); NEUTROPHILS 77.7 % (40-80); PLATELET COUNT 274 10x3/uL (130-400); RBC 2.98 10x6/uL (4.20-6.10); RDW 14.4 % (11.5-14.5); WBC 12.7 10x3/uL (4.8-10.8)
[2018-06-26 10:12] LABS: CALCIUM 8.8 mg/dL (8.5-10.1); CARBON DIOXIDE 17.9 mmol/L (21.0-32.0); CREATININE - SERUM 3.1 mg/dL (0.6-1.3)
[2018-06-26 10:15] LABS: POTASSIUM - SERUM 2.9 mmol/L (3.5-5.1)
[2018-06-26] MEDS ORDERED: LEVAQUIN250 MG PO (11:08)
[2018-06-26] MEDS ORDERED: K-DUR20 MEQ PO (11:55)
[2018-06-26 12:34] VITALS: BP 137/58
== END 2018-06-26 16:16 | DRG 207 ==
LOC: D.ER 05:38 → D.ICU 07:20 → D.EDHOLD 07:20 → D.ICU 07:20 → D.MS 06-22 16:55
PROVIDERS: Family Medicine; Internal Medicine; Internal Medicine Nephrology; Internal Medicine Pulmonary Disease
PROC: 0BH17EZ Insertion of Endotracheal Airway into Trachea, Via Natural or Artificial Opening (ICD-10-PCS; principal; 2018-06-10)
PROC: 5A1955Z Respiratory Ventilation, Greater than 96 Consecutive Hours (ICD-10-PCS; 2018-06-10)
DX: J96.01 Acute respiratory failure with hypoxia (principal); I63.9 Cerebral infarction, unspecified; G93.40 Encephalopathy, unspecified; N17.9 Acute kidney failure, unspecified; J81.1 Chronic pulmonary edema; E11.22 Type 2 diabetes mellitus with diabetic chronic kidney disease; I12.9 Hypertensive chronic kidney disease with stage 1 through stage 4 chronic kidney disease, or unspecified chronic kidney disease; N18.9 Chronic kidney disease, unspecified; I48.91 Unspecified atrial fibrillation; Z95.1 Presence of aortocoronary bypass graft; E11.21 Type 2 diabetes mellitus with diabetic nephropathy; E11.40 Type 2 diabetes mellitus with diabetic neuropathy, unspecified; D64.9 Anemia, unspecified

== ENCOUNTER → 2018-07-28 15:01 | Outpatient (CLI) | payer MEDICARE, MEDICAID ==
[2018-06-15 11:24] VITALS: BMI 28.9
[~2018-07-28 15:01] MED LIST changes: +AVAPRO150 MG PO; +K-DUR20 MEQ PO; +LEVAQUIN250 MG PO; +PROTONIX40 MG PO
== END | disposition home or self-care (01) ==
LOC: D.LABREF 15:01
DX: D63.1 Anemia in chronic kidney disease (principal); I10 Essential (primary) hypertension; E11.9 Type 2 diabetes mellitus without complications; I48.91 Unspecified atrial fibrillation

== ENCOUNTER → 2018-11-02 09:51 | Outpatient (CLI) | payer MEDICARE, MEDICAID ==
[2018-06-15 11:24] VITALS: BMI 28.9
== END | disposition home or self-care (01) ==
LOC: D.RT 09:51
PROVIDERS: ATTEND Internal Medicine Pulmonary Disease
DX: J44.9 Chronic obstructive pulmonary disease, unspecified (principal)

== ENCOUNTER 2019-01-31 18:57 | Emergency (ER) | payer MEDICARE, MEDICAID ==
[~2019-01-31] VITALS: Ht 167.6 cm; Wt 68.0 kg
[2019-01-31 19:04] VITALS: Ht 167.6 cm; Wt 68.0 kg
[2019-01-31 20:48] VITALS: BP 171/90
== END 2019-01-31 20:48 | disposition home or self-care (01) ==
LOC: D.ER 18:57
DX: S51.812A Laceration without foreign body of left forearm, initial encounter (principal); S51.811A Laceration without foreign body of right forearm, initial encounter; W18.30XA Fall on same level, unspecified, initial encounter; Y93.89 Activity, other specified; Y92.89 Other specified places as the place of occurrence of the external cause

== ENCOUNTER 2019-03-16 18:26 | Emergency (ER) | payer MEDICARE, MEDICAID ==
[~2019-03-16] VITALS: Ht 167.6 cm; Wt 69.1 kg
[2019-03-16 18:34] VITALS: BP 150/71; Ht 167.6 cm; Wt 69.1 kg
== END 2019-03-16 21:25 | disposition home or self-care (01) ==
LOC: D.ER 18:26
DX: S41.111A Laceration without foreign body of right upper arm, initial encounter (principal); W17.89XA Other fall from one level to another, initial encounter

== ENCOUNTER 2019-07-22 20:46 | Emergency (ER) | payer MEDICARE, MEDICAID ==
[~2019-07-22] VITALS: Ht 167.6 cm; Wt 69.1 kg
[2019-07-22 20:56] VITALS: Ht 167.6 cm; Wt 69.1 kg
[2019-07-23 01:18] LABS: BASOPHILS 0.1 % (0-2); EOSINOPHILS 4.1 % (0-7); HEMOGLOBIN 11.5 g/dL (13.5-17.5); IMMATURE GRANULOCYTES 0.2 % (0-5); LYMPHOCYTES 19.8 % (15-50); MCH 32.3 pg (26.0-34.0); MCHC 33.8 g/dL (31.0-37.0); MCV 95.5 fL (80.0-100.0); MEAN PLATELET VOLUME 9.5 fL (7.4-10.4); MONOCYTES 10.7 % (2-11); NEUTROPHILS 65.1 % (40-80); RBC 3.56 10x6/uL (4.20-6.10); RDW 13.9 % (11.5-14.5); WBC 9.2 10x3/uL (4.8-10.8)
[2019-07-23 01:19] LABS: PLATELET COUNT 133 10x3/uL (130-400)
[2019-07-23 01:24] LABS: APPEARANCE CLEAR (CLEAR); BILIRUBIN NEGATIVE (NEGATIVE); COLOR YELLOW (YELLOW); GLUCOSE 100 mg/dL (NEGATIVE); KETONE NEGATIVE (NEGATIVE); NITRITE NEGATIVE (NEGATIVE); PROTEIN 3+ mg/dL (NEGATIVE); SPECIFIC GRAVITY 1.015 (1.005-1.020); UROBILINOGEN NORMAL (NORMAL)
[2019-07-23 01:25] LABS: BACTERIA FEW /hpf (NEGATIVE); EPITHELIAL CELLS 0-5 /hpf (0-5); RED CELLS - URINE 0-5 /hpf (0-5); WHITE CELLS - URINE 0-5 /hpf (NEGATIVE)
[2019-07-23 01:27] LABS: ANION GAP 14.7 mmol/L (8-16); CALCIUM 9.1 mg/dL (8.5-10.1); CARBON DIOXIDE 22.1 mmol/L (21.0-32.0); CREATININE - SERUM 2.3 mg/dL (0.6-1.3); POTASSIUM - SERUM 4.8 mmol/L (3.5-5.1)
[2019-07-23 01:33] LABS: ALBUMIN 2.7 g/dL (3.4-5.0); BILIRUBIN - TOTAL 0.38 mg/dL (0.2-1.3); PROTEIN - SERUM 6.3 g/dL (6.4-8.2)
[2019-07-23] MEDS ORDERED: ULTRAM50 MG PO (01:45)
[2019-07-23 01:58] VITALS: BP 133/73
[2019-07-23 02:08] LABS: INR 1.1 (0.85-1.17); PROTIME 14.2 SECONDS (11.6-15.0)
== END 2019-07-23 01:58 | disposition home or self-care (01) ==
LOC: D.ER 20:46
PROVIDERS: Emergency Medicine
DX: N50.819 Testicular pain, unspecified (principal); N50.89 Other specified disorders of the male genital organs; Z86.73 Personal history of transient ischemic attack (TIA), and cerebral infarction without residual deficits; E11.9 Type 2 diabetes mellitus without complications; I10 Essential (primary) hypertension; I25.2 Old myocardial infarction; I48.91 Unspecified atrial fibrillation; Z95.0 Presence of cardiac pacemaker; Z95.1 Presence of aortocoronary bypass graft

== ENCOUNTER 2020-03-12 15:11 | Emergency (ER) | payer MEDICARE, MEDICAID ==
[~2020-03-12 15:11] MED LIST changes: +ULTRAM50 MG PO
[2020-03-12 15:26] VITALS: BP 138/67; Ht 167.6 cm
[2020-03-12 16:17] LABS: BASOPHILS 0.5 % (0-2); HEMATOCRIT 29.8 % (42.0-54.0); HEMOGLOBIN 9.6 g/dL (13.5-17.5); IMMATURE GRANULOCYTES 0.2 % (0-5); LYMPHOCYTES 16.8 % (15-50); MCH 29.4 pg (26.0-34.0); MCHC 32.2 g/dL (31.0-37.0); MCV 91.1 fL (80.0-100.0); MEAN PLATELET VOLUME 8.8 fL (7.4-10.4); MONOCYTES 8.5 % (2-11); PLATELET COUNT 115 10x3/uL (130-400); RBC 3.27 10x6/uL (4.20-6.10); RDW 14.3 % (11.5-14.5); WBC 5.6 10x3/uL (4.8-10.8)
[2020-03-12 16:34] LABS: APTT 32.1 SECONDS (22.8-39.4); INR 1.22 (0.85-1.17); PROTIME 15.3 SECONDS (11.6-15.0)
[2020-03-12 16:45] LABS: ANION GAP 13.3 mmol/L (8-16); CARBON DIOXIDE 21.8 mmol/L (21.0-32.0); CREATININE - SERUM 3.4 mg/dL (0.6-1.3); POTASSIUM - SERUM 4.1 mmol/L (3.5-5.1)
[2020-03-12 16:50] LABS: ALBUMIN 2.8 g/dL (3.4-5.0); BILIRUBIN - TOTAL 0.22 mg/dL (0.2-1.3); PROTEIN - SERUM 6.3 g/dL (6.4-8.2)
== END 2020-03-12 17:14 | disposition home or self-care (01) ==
LOC: D.ER 15:11
PROVIDERS: Family Medicine
DX: S09.90XA Unspecified injury of head, initial encounter (principal); M79.601 Pain in right arm; W19.XXXA Unspecified fall, initial encounter; Y93.9 Activity, unspecified; Y92.9 Unspecified place or not applicable; Z86.73 Personal history of transient ischemic attack (TIA), and cerebral infarction without residual deficits; E11.9 Type 2 diabetes mellitus without complications; I10 Essential (primary) hypertension; I25.2 Old myocardial infarction; K21.9 Gastro-esophageal reflux disease without esophagitis; Z79.84 Long term (current) use of oral hypoglycemic drugs

== ENCOUNTER 2020-12-08 16:14 | Inpatient (IN) | payer MEDICARE ==
[~2020-12-08] VITALS: Ht 165.1 cm; Wt 77.6 kg
[~2020-12-08 16:14] MED LIST changes: +ALBUTEROL SULF8.5 GM INH; +AMIODARONE HCL400 MG PO; +ATIVAN0.5 MG PO; +ELIQUIS2.5 MG PO; +FUROSEMIDE40 MG PO; +MYSOLINE 50 MG50 MG PO; +SODIUM BICARBO650 MG PO
[2020-12-08 16:51] LABS: BASOPHILS 1.4 % (0-2); EOSINOPHILS 4.6 % (0-7); HEMATOCRIT 25.1 % (42.0-54.0); LYMPHOCYTES 21.1 % (15-50); MCH 25.9 pg (26.0-34.0); MCHC 31.8 g/dL (31.0-37.0); MCV 81.5 fL (80.0-100.0); MEAN PLATELET VOLUME 7.6 fL (7.4-10.4); MONOCYTES 12.6 % (2-11); NEUTROPHILS 60.3 % (40-80); PLATELET COUNT 135 10x3/uL (130-400); RBC 3.08 10x6/uL (4.20-6.10); RDW 17.4 % (11.5-14.5); WBC 6.1 10x3/uL (4.8-10.8)
[2020-12-08 17:03] LABS: ANION GAP 12.1 mmol/L (8-16); CALCIUM 8.4 mg/dL (8.5-10.1); CARBON DIOXIDE 22.6 mmol/L (21.0-32.0); CREATININE - SERUM 4.4 mg/dL (0.6-1.3); POTASSIUM - SERUM 4.7 mmol/L (3.5-5.1)
[2020-12-08 17:10] LABS: BILIRUBIN - TOTAL 0.15 mg/dL (0.2-1.3); PROTEIN - SERUM 6.5 g/dL (6.4-8.2)
[2020-12-08 17:12] LABS: BILIRUBIN NEGATIVE (NEGATIVE); KETONE NEGATIVE (NEGATIVE); NITRITE NEGATIVE (NEGATIVE); UROBILINOGEN NORMAL mg/dL (< 2)
[2020-12-08 17:13] LABS: BACTERIA FEW HPF (NONE SEEN); WHITE CELLS - URINE 0-5 HPF (0-1)
[2020-12-08] MEDS ORDERED: HYDROCODON-ACE1 EA10 PO (19:13)
[2020-12-08] MEDS ORDERED: ALDACTONE50 MG PO (23:29)
[2020-12-09 00:43] VITALS: BP 159/53
[2020-12-09 05:37] VITALS: BP 127/58
--- NOTE | 2020-12-09 07:00 | NUR ---
RECEIVED REPORT. ASSUMED CARE OF PATIENT. CALL LIGHT WITHIN REACH. SR, RATE OF 67 ON TELEMETRY. BEDSIDE SHIFT REPORT COMPLETE, WHITE BOARD UPDATED. NO DISTRESS.
[2020-12-09 07:10] LABS: BASOPHILS 1.4 % (0-2); EOSINOPHILS 5.3 % (0-7); HEMATOCRIT 23.9 % (42.0-54.0); HEMOGLOBIN 7.7 g/dL (13.5-17.5); LYMPHOCYTES 23.3 % (15-50); MCHC 32.1 g/dL (31.0-37.0); MEAN PLATELET VOLUME 7.6 fL (7.4-10.4); MONOCYTES 15.4 % (2-11); NEUTROPHILS 54.6 % (40-80); PLATELET COUNT 115 10x3/uL (130-400); RBC 2.95 10x6/uL (4.20-6.10); RDW 16.6 % (11.5-14.5); RETIC 1.18 % (0.45-2.28); WBC 4.7 10x3/uL (4.8-10.8)
[2020-12-09 07:16] LABS: % SATURATION 6 % (15-55); IRON 20 ug/dl (35-150); TOTAL IRON BIND CAPACITY 304 ug/dl (260-445); UNSAT IRON BIND CAPACITY 284 ug/dl (150-375)
[2020-12-09 07:33] LABS: APTT 32.3 SECONDS (22.8-39.4); INR 1.29 (0.85-1.17); PROTIME 14.9 SECONDS (11.6-15.0)
[2020-12-09 07:41] LABS: ALBUMIN 2.6 g/dL (3.4-5.0); ALKALINE PHOSPHATASE 99 U/L (30-120); ALT (SGPT) 23 U/L (10-68); BILIRUBIN - TOTAL 0.15 mg/dL (0.2-1.3); CALC OSMOLALITY 289 mosm/kg (275-300); CALCIUM 8.6 mg/dL (8.5-10.1); CARBON DIOXIDE 21.6 mmol/L (21.0-32.0); CHLORIDE - SERUM 108 mmol/L (98-107); CKMB 0.8 U/L (0.0-3.6); CREATINE KINASE 29 UL (21-232); CREATININE - SERUM 4.3 mg/dL (0.6-1.3); FERRITIN 8 ng/mL (3-244); GLUCOSE 115 mg/dL (74-106); POTASSIUM - SERUM 4.6 mmol/L (3.5-5.1); PROTEIN - SERUM 5.9 g/dL (6.4-8.2); SODIUM 137 mmol/L (136-145); TROPONIN-I < 0.017 ng/mL (0.000-0.060); UREA NITROGEN 55 mg/dL (7-18); eGFR NON AFRICAN AMERICAN 14 mL/min (90-120)
--- NOTE | 2020-12-09 08:00 | NUR ---
SCDs REFUSED AT THIS TIME. EDUCATION PROVIDED TO WHY WE USE SCDs AND HOW THEY HELP PREVENT BLOOD CLOTS. PATIENT VERBALIZED UNDERSTANDING OF EDUCATION PROVIDED. NO USE OF SCDs AT THIS TIME. NO DISTRESS. NOT AT BEDSIDE AT THIS TIME.
--- NOTE | 2020-12-09 08:39 | NUR ---
MEDICATED FOR BACK PAIN AT THIS TIME. NO DISTRESS.
[2020-12-09 09:17] VITALS: BP 166/66
[2020-12-09 11:57] VITALS: BP 131/62
[2020-12-09 13:58] VITALS: Ht 165.1 cm; Wt 77.6 kg
[2020-12-09 19:25] VITALS: BP 191/71
[2020-12-09 20:00] VITALS: BP 191/71
--- NOTE | 2020-12-09 20:00 | NUR ---
INITIAL ROUNDS AND ASSESSMENT COMPLETED. PT RESTING IN BED. NO DISTRESS. CALL LIGHT IN REACH.
[2020-12-10 04:00] VITALS: BP 164/68
[2020-12-10 06:21] LABS: RDW 16.9 % (11.5-14.5)
[2020-12-10 06:24] LABS: BASOPHILS 1.3 % (0-2); EOSINOPHILS 4.2 % (0-7); LYMPHOCYTES 20.6 % (15-50); MCV 81.3 fL (80.0-100.0); MEAN PLATELET VOLUME 7.8 fL (7.4-10.4); MONOCYTES 11.1 % (2-11); NEUTROPHILS 62.8 % (40-80); PLATELET COUNT 111 10x3/uL (130-400); RBC 2.82 10x6/uL (4.20-6.10); WBC 4.9 10x3/uL (4.8-10.8)
[2020-12-10 06:29] LABS: HEMOGLOBIN 7.3 g/dL (13.5-17.5)
[2020-12-10 06:54] LABS: ALBUMIN 2.5 g/dL (3.4-5.0); ANION GAP 11.8 mmol/L (8-16); CALCIUM 8.6 mg/dL (8.5-10.1); CARBON DIOXIDE 20.4 mmol/L (21.0-32.0); CREATININE - SERUM 4.1 mg/dL (0.6-1.3); POTASSIUM - SERUM 5.2 mmol/L (3.5-5.1); PROTEIN - SERUM 5.6 g/dL (6.4-8.2)
[2020-12-10 07:04] LABS: BILIRUBIN - TOTAL 0.07 mg/dL (0.2-1.3)
--- NOTE | 2020-12-10 07:20 | NUR ---
RECIEVE REPORT. RESTING IN BED WITH EYES CLOSED. NO SIGNS OF DISTRESS. CONTINUE PLAN OF CARE AND SAFETY PRECAUTIONS.
[2020-12-10 07:44] VITALS: BP 174/863
[2020-12-10 12:02] VITALS: BP 159/68
[2020-12-10] MEDS ORDERED: FERROUS SULFAT325 MG PO (12:25)
--- NOTE | 2020-12-10 14:00 | NUR ---
ALERT AND ORIENTED X4. SITTING UP IN BED WATCHING TV. BLOOD CONSENT SIGNED ON CHART FOR PRBC TRANSFUSION. BP-156/60, HR-60, R-16, T-98.9. INITIATE PRBC TRANSFUSION AT 75ml/HR. REMAIN IN ROOM FIRST 15mins TO MONITOR FOR REACTION. CONTINUE PLAN OF CARE AND SAFETYP RECAUTIONS.
--- NOTE | 2020-12-10 14:15 | NUR ---
ALERT AND ORIENTED X4. SITTING UP IN BED WATCHING TV. PRBC TRANSFUSION CONTINUED. INCREASE RATE TO 120ml/HR. NO SIGNS OF REACTION. BP-150/67, HR-59, R-16, T-98.1. DENIES ANY NEEDS. CONTINUE PLAN OF CARE AND SAFETY PRECAUTIONS.
[2020-12-10 15:37] VITALS: BP 141/91
--- NOTE | 2020-12-10 18:17 | NUR ---
RIDE ARRIVES. ESCORT TO RIDE VIA WHEELCHAIR. REMAINS FREE FROM INJURY.
--- NOTE | 2020-12-10 18:22 | MORECARE ---
CASE MANAGEMENT DISCHARGE SUMMARY PATIENT: ANABELLE ESPITIA UNIT: [id number] ADM DATE: 12/08/20 AGE: 75 : 46 SEX: M ROOM/BED: D.1964 AUTHOR: SWETHA,DOC PHYSICIAN: REFERRING PHYSICIAN: ALONA DEJESUS DO DATE OF SERVICE: 12/10/20 Case Management Discharge Planning Summary DCP REVIEW SUMMARY ANTICIPATED D/C DATE: 12/10/2020 EXPECTED LOS : 2 CASE STATUS: DCP Initiated INITIAL REVIEW: 12/08/2020 INITIAL REVIEWER: Mookie Verma FINAL DISCHARGE DISPOSITION: : FINAL REVIEWER: FINAL REVIEW DATE: DCP Focus Questions & Answers DCP Evaluation QUESTION: ANSWER Family / Caregiver's ability to cope with chronic illness: : a. Adequate (ability to meet patient's medical needs, ensures patient attends medical appts.) Patient gives permission to discuss discharge plans with: (name, relationship and number) : , Federica Espitia, Patient's ability to cope with chronic illness : d. No chronic illness Patient's current cognitive status: : *Oriented to person, place, situation, time and present Patient and/or caregiver agree upon recommended discharge plan? : Yes Physical Status: : Independent with ADL's Family / Caregiver's ability to cope with chronic illness: : a. Adequate (ability to meet patient's medical needs, ensures patient attends medical appts.) Functional screen assessment: : Basic needs can adequately be met by self Does the patient have the ability to pay for or attain post discharge needs / services? : Yes Living Arrangements: : Home with Spouse/Significant Other Is there a likelihood that the patient will require additional services to return to the preadmission environment? : No Equipment needed for post hospitalization: : None Baseline cognitive status: : *Oriented to person, place, situation, time and present Patient with capacity for self-care or can be cared for in same environment as prior to hospitalization? : Yes Physical environment modification needed / anticipated for discharge: : No Medication Management: : Patient states can afford medications Medication Management: : Patient states can read and understand medication labels Pharmacy name(s): : [facility] on [address] Does Patient have transportation to get home and to follow-up medical appointments when discharged from the hospital? : Yes Would patient like to participate in any Care Coordination programs (if applicable): : Not applicable Does the patient have electricity at home? : Yes Does the patient have running water in their house? : Yes Equipment in use: : Cane - Single Leg Equipment in use: : Walker - Rollator Mental health screen: : No mental health history DCP Re-evaluation QUESTION: ANSWER Would patient like to participate in any Care Coordination programs (if applicable): : Not applicable PATIENT: ANABELLE ESPITIA ENCOUNTER: [id number] MEDICAL RECORD#: [id number] ADMISSION DATE: 12/08/2020 DISCHARGE DATE: 12/10/2020 ATTENDING MD: ALONA SMITH : AGE: 75 MARITAL STATUS: M DC PLAN ID: [id number] FACILITY: [facility] PRINTED ON: 12/10/20 18:22 CT All edits/amendments must be made on the electronic document DICTATION DATE: 12/10/201821 RADIOLOGY RN: MARILU 12/10/201821 RPT#: [id number] DC DATE:12/10/20 STATUS: DIS IN [facility] [address] [place] [address] END OF REPORT
--- NOTE | 2020-12-11 16:00 | MORECARE ---
CASE MANAGEMENT DISCHARGE SUMMARY PATIENT: ANABELLE ESPITIA UNIT: [id number] ADM DATE: 12/08/20 AGE: 75 : 46 SEX: M ROOM/BED: D.8520 AUTHOR: NAYELI POSADA PHYSICIAN: REFERRING PHYSICIAN: ALONA DEJESUS DO DATE OF SERVICE: 12/11/20 Case Management Discharge Planning Summary DCP REVIEW SUMMARY ANTICIPATED D/C DATE: 12/10/2020 EXPECTED LOS : 2 CASE STATUS: DCP Initiated INITIAL REVIEW: 12/08/2020 INITIAL REVIEWER: Mookie Verma FINAL DISCHARGE DISPOSITION: : FINAL REVIEWER: FINAL REVIEW DATE: DCP Focus Questions & Answers DCP Evaluation QUESTION: ANSWER Patient and/or caregiver agree upon recommended discharge plan? : Yes Family / Caregiver's ability to cope with chronic illness: : a. Adequate (ability to meet patient's medical needs, ensures patient attends medical appts.) Patient's current cognitive status: : *Oriented to person, place, situation, time and present Patient's ability to cope with chronic illness : d. No chronic illness Patient gives permission to discuss discharge plans with: (name, relationship and number) : , Federica Espitia, Does the patient have the ability to pay for or attain post discharge needs / services? : Yes Functional screen assessment: : Basic needs can adequately be met by self Family / Caregiver's ability to cope with chronic illness: : a. Adequate (ability to meet patient's medical needs, ensures patient attends medical appts.) Physical Status: : Independent with ADL's Equipment needed for post hospitalization: : None Is there a likelihood that the patient will require additional services to return to the preadmission environment? : No Living Arrangements: : Home with Spouse/Significant Other Patient with capacity for self-care or can be cared for in same environment as prior to hospitalization? : Yes Baseline cognitive status: : *Oriented to person, place, situation, time and present Physical environment modification needed / anticipated for discharge: : No Medication Management: : Patient states can read and understand medication labels Medication Management: : Patient states can afford medications Pharmacy name(s): : [facility] on [address] Does Patient have transportation to get home and to follow-up medical appointments when discharged from the hospital? : Yes Would patient like to participate in any Care Coordination programs (if applicable): : Not applicable Does the patient have electricity at home? : Yes Does the patient have running water in their house? : Yes Equipment in use: : Walker - Rollator Equipment in use: : Cane - Single Leg Mental health screen: : No mental health history DCP Re-evaluation QUESTION: ANSWER Would patient like to participate in any Care Coordination programs (if applicable): : Not applicable PATIENT: ANABELLE ESPITIA ENCOUNTER: [id number] MEDICAL RECORD#: [id number] ADMISSION DATE: 12/08/2020 DISCHARGE DATE: 12/10/2020 ATTENDING MD: ALONA SMITH : AGE: 75 MARITAL STATUS: M DC PLAN ID: [id number] FACILITY: [facility] PRINTED ON: 12/11/20 16:00 CT All edits/amendments must be made on the electronic document DICTATION DATE: 12/11/201599 MORPHOLOGIST: MARILU 12/11/20 1600 RPT#: [id number] DC DATE:12/10/20 STATUS: DIS IN [facility] [address] [place] [address] END OF REPORT
[2020-12-12 10:12] LABS: HEPATITIS C ANTIBODY 0.1 S/CO RAT (0.0-0.9)
== END 2020-12-10 18:20 | disposition home or self-care (01) | DRG 683 ==
LOC: D.ER 16:14 → D.M2 20:01
PROVIDERS: Emergency Medicine; Internal Medicine Nephrology; ADMIT Family Medicine; ATTEND Family Medicine
DX: I12.0 Hypertensive chronic kidney disease with stage 5 chronic kidney disease or end stage renal disease (principal); N18.5 Chronic kidney disease, stage 5; N17.9 Acute kidney failure, unspecified; J96.11 Chronic respiratory failure with hypoxia; E87.1 Hypo-osmolality and hyponatremia; E11.22 Type 2 diabetes mellitus with diabetic chronic kidney disease; D63.1 Anemia in chronic kidney disease; E21.3 Hyperparathyroidism, unspecified; I25.10 Atherosclerotic heart disease of native coronary artery without angina pectoris; E78.5 Hyperlipidemia, unspecified; K21.9 Gastro-esophageal reflux disease without esophagitis; F41.9 Anxiety disorder, unspecified; G89.29 Other chronic pain

== ENCOUNTER 2020-12-30 12:30 | Inpatient (IN) | payer MEDICARE ==
[~2020-12-30] VITALS: Ht 152.4 cm; Wt 77.3 kg
[~2020-12-30 12:30] MED LIST changes: +ALDACTONE50 MG PO; +FERROUS SULFAT325 MG PO; +HYDROCODON-ACE1 EA10 PO
[2020-12-30 13:34] VITALS: BP 118/73
--- NOTE | 2020-12-30 13:40 | NUR ---
BEDSIDE GLUCOSE READING 158 AT 1340
[2020-12-30 14:01] LABS: BASOPHILS 1.2 % (0-2); EOSINOPHILS 3.1 % (0-7); HEMATOCRIT 31.1 % (42.0-54.0); HEMOGLOBIN 9.9 g/dL (13.5-17.5); LYMPHOCYTES 15.4 % (15-50); MCH 27.6 pg (26.0-34.0); MCHC 31.8 g/dL (31.0-37.0); MCV 86.8 fL (80.0-100.0); MEAN PLATELET VOLUME 7.9 fL (7.4-10.4); MONOCYTES 9.4 % (2-11); NEUTROPHILS 70.9 % (40-80); PLATELET COUNT 114 10x3/uL (130-400); RBC 3.59 10x6/uL (4.20-6.10); RDW 18.7 % (11.5-14.5); WBC 6.7 10x3/uL (4.8-10.8)
[2020-12-30 14:04] LABS: BILIRUBIN NEGATIVE (NEGATIVE); KETONE NEGATIVE mg/dL (< 1+); NITRITE NEGATIVE (NEGATIVE); UROBILINOGEN NORMAL mg/dL (< 2)
[2020-12-30 14:13] LABS: CALC OSMOLALITY 287 mosm/kg (275-300); CALCIUM 9.1 mg/dL (8.5-10.1); CARBON DIOXIDE 20.9 mmol/L (21.0-32.0); CHLORIDE - SERUM 106 mmol/L (98-107); GLUCOSE 145 mg/dL (74-106); POTASSIUM - SERUM 4.8 mmol/L (3.5-5.1); SODIUM 136 mmol/L (136-145); UREA NITROGEN 50 mg/dL (7-18); eGFR NON AFRICAN AMERICAN 12 mL/min (90-120)
[2020-12-30 14:19] LABS: UDS - AMPHET NEGATIVE QUAL (NEGATIVE); UDS - BARB POSITIVE QUAL (NEGATIVE); UDS - BENZO NEGATIVE QUAL (NEGATIVE); UDS - COCAINE NEGATIVE QUAL (NEGATIVE); UDS - OPIATE NEGATIVE QUAL (NEGATIVE); UDS - PCP NEGATIVE QUAL (NEGATIVE); UDS - THC NEGATIVE QUAL (NEGATIVE)
[2020-12-30 14:31] LABS: ALBUMIN 3.1 g/dL (3.4-5.0); ALKALINE PHOSPHATASE 113 U/L (30-120); ALT (SGPT) 20 U/L (10-68); BILIRUBIN - TOTAL 0.18 mg/dL (0.2-1.3); CKMB 0.4 U/L (0.0-3.6); CREATINE KINASE 29 UL (21-232); MAGNESIUM - SERUM 2.1 mg/dL (1.8-2.4); PROTEIN - SERUM 6.4 g/dL (6.4-8.2); THYROID STIMULATING HORMONE 3.69 uIU/mL (0.36-3.74); TROPONIN-I < 0.017 ng/mL (0.000-0.060)
--- NOTE | 2020-12-30 20:22 | NUR ---
PT TO ROOM 2113 VIA WHEELCHAIR ACCOMPANIED BY AND HOSPITAL STAFF.
[2020-12-30 20:59] VITALS: BP 192/70
[2020-12-31] VITALS: BP 121/53
[2020-12-31 04:18] VITALS: Ht 152.4 cm; Wt 77.3 kg
[2020-12-31 04:30] VITALS: BP 122/57
[2020-12-31 05:51] LABS: BASOPHILS 1.3 % (0-2); EOSINOPHILS 4.3 % (0-7); HEMATOCRIT 28.6 % (42.0-54.0); HEMOGLOBIN 9.3 g/dL (13.5-17.5); LYMPHOCYTES 22.8 % (15-50); MCH 27.7 pg (26.0-34.0); MCHC 32.5 g/dL (31.0-37.0); MCV 85.2 fL (80.0-100.0); MEAN PLATELET VOLUME 7.6 fL (7.4-10.4); MONOCYTES 11.7 % (2-11); NEUTROPHILS 59.9 % (40-80); PLATELET COUNT 97 10x3/uL (130-400); RBC 3.36 10x6/uL (4.20-6.10); RDW 19.3 % (11.5-14.5)
[2020-12-31 05:54] LABS: PLATELET ESTIMATE DECREASED; WBC 4.8 10x3/uL (4.8-10.8)
[2020-12-31 07:33] LABS: CALCIUM 9.1 mg/dL (8.5-10.1); CARBON DIOXIDE 18.3 mmol/L (21.0-32.0); MAGNESIUM - SERUM 2.2 mg/dL (1.8-2.4); PHOSPHOROUS 4.5 mg/dL (2.5-4.9); POTASSIUM - SERUM 4.3 mmol/L (3.5-5.1); THYROID STIMULATING HORMONE 3.97 uIU/mL (0.36-3.74)
[2020-12-31 08:55] VITALS: BP 139/67
--- NOTE | 2020-12-31 12:52 | NUR ---
PROVIDED VERBAL AND WRITTEN DISCHARGE TEACHING TO PT, WHO VERBALIZED UNDERSTANDING REGARDING TEACHING. D/C RT HAND IV WITH CATHETER TIP INTACT. PT READY FOR WHEELCHAIR.
--- NOTE | 2020-12-31 12:58 | NUR ---
PT LEFT UNIT VIA WHEELCHAIR, WITH ALL BELONGINGS, ACCOMPANIED BY SPOUSE, NAD NOTED.
--- NOTE | 2020-12-31 18:05 | MORECARE ---
CASE MANAGEMENT DISCHARGE SUMMARY PATIENT: ANABELLE STRAUSS UNIT: [id number] ADM DATE: 12/30/20 AGE: 75 : 46 SEX: M ROOM/BED: D.[facility] AUTHOR: SWETHA,DOC PHYSICIAN: REFERRING PHYSICIAN: CARMEN CHENG MD DATE OF SERVICE: 12/31/20 Case Management Discharge Planning Summary DCP REVIEW SUMMARY ANTICIPATED D/C DATE: EXPECTED LOS : CASE STATUS: DCP Complete INITIAL REVIEW: 12/30/2020 INITIAL REVIEWER: Deanna Pierce FINAL DISCHARGE DISPOSITION: : FINAL REVIEWER: FINAL REVIEW DATE: DCP Focus Questions & Answers QUESTION: ANSWER : PATIENT: ANABELLE STRAUSS ENCOUNTER: [id number] MEDICAL RECORD#: [id number] ADMISSION DATE: 12/30/2020 DISCHARGE DATE: 12/31/2020 ATTENDING MD: BALTAZAR: AGE: 75 MARITAL STATUS: M DC PLAN ID: [id number] FACILITY: [facility] PRINTED ON: 12/31/20 18:05 CT All edits/amendments must be made on the electronic document DICTATION DATE: 12/31/201804 DOCUMENT DESIGN SPECIALIST: MARILU 12/31/201804 RPT#: [id number] DC DATE:12/31/20 STATUS: DIS IN [facility] [address] [place] [address] END OF REPORT
--- NOTE | 2020-12-31 18:51 | MORECARE ---
CASE MANAGEMENT DISCHARGE SUMMARY PATIENT: ANABELLE ESPITIA UNIT: [id number] ADM DATE: 12/30/20 AGE: 75 : 46 SEX: M ROOM/BED: D.8536 AUTHOR: NAYELI POSADA PHYSICIAN: REFERRING PHYSICIAN: CARMEN CHENG MD DATE OF SERVICE: 12/31/20 Case Management Discharge Planning Summary DCP REVIEW SUMMARY ANTICIPATED D/C DATE: 12/31/2020 EXPECTED LOS : 1 CASE STATUS: DCP Complete INITIAL REVIEW: 12/30/2020 INITIAL REVIEWER: Deanna Pierce FINAL DISCHARGE DISPOSITION: : FINAL REVIEWER: FINAL REVIEW DATE: DCP Focus Questions & Answers DCP Evaluation QUESTION: ANSWER Patient gives permission to discuss discharge plans with: (name, relationship and number) : spouse, Federica Espitia, Patient's ability to cope with chronic illness : d. No chronic illness Patient's current cognitive status: : *Oriented to person, place, situation, time and present Patient's current cognitive status: : Intermittently confused / memory changes Family / Caregiver's ability to cope with chronic illness: : a. Adequate (ability to meet patient's medical needs, ensures patient attends medical appts.) Patient and/or caregiver agree upon recommended discharge plan? : Yes Physical Status: : Hearing impaired Physical Status: : Mobility impaired Physical Status: : Partial care dependence Family / Caregiver's ability to cope with chronic illness: : a. Adequate (ability to meet patient's medical needs, ensures patient attends medical appts.) Functional screen assessment: : Basic needs can adequately be met by self Does the patient have the ability to pay for or attain post discharge needs / services? : Yes Partial Dependence, assistance required for: : Ambulation / Mobility Partial Dependence, assistance required for: : Bathing Partial Dependence, assistance required for: : Dressing Partial Dependence, assistance required for: : Eating Living Arrangements: : Home with Spouse/Significant Other Is there a likelihood that the patient will require additional services to return to the preadmission environment? : Yes Equipment needed for post hospitalization: : None Baseline cognitive status: : *Oriented to person, place, situation, time and present Baseline cognitive status: : Intermittently confused / memory changes Patient with capacity for self-care or can be cared for in same environment as prior to hospitalization? : Yes Physical environment modification needed / anticipated for discharge: : No Medication Management: : Patient states can afford medications Medication Management: : Patient states can read and understand medication labels Pharmacy name(s): : [facility] on [address] Does Patient have transportation to get home and to follow-up medical appointments when discharged from the hospital? : Yes Would patient like to participate in any Care Coordination programs (if applicable): : Not applicable Does the patient have electricity at home? : Yes Does the patient have running water in their house? : Yes Equipment in use: : Bedside Commode Equipment in use: : Cane - Single Leg Equipment in use: : Shower Chair Equipment in use: : Walker - Rolling Equipment in use: : Wheelchair Mental health screen: : No mental health history DCP Re-evaluation QUESTION: ANSWER Would patient like to participate in any Care Coordination programs (if applicable): : Not applicable PATIENT: ANABELLE ESPITIA ENCOUNTER: [id number] MEDICAL RECORD#: [id number] ADMISSION DATE: 12/30/2020 DISCHARGE DATE: 12/31/2020 ATTENDING MD: BALTAZAR: AGE: 75 MARITAL STATUS: M DC PLAN ID: [id number] FACILITY: [facility] PRINTED ON: 12/31/20 18:51 CT All edits/amendments must be made on the electronic document DICTATION DATE: 12/31/[address] REGISTRAR: MARILU 12/31/201850 RPT#: [id number] DC DATE:12/31/20 STATUS: DIS IN [place] [id number] [place] [address] END OF REPORT
--- NOTE | 2020-12-31 19:03 | MORECARE ---
CASE MANAGEMENT DISCHARGE SUMMARY PATIENT: ANABELLE ESPITIA UNIT: [id number] ADM DATE: 12/30/20 AGE: 75 : 46 SEX: M ROOM/BED: D.2113 AUTHOR: NAYELI POSADA PHYSICIAN: REFERRING PHYSICIAN: CARMEN CHENG MD DATE OF SERVICE: 12/31/20 Case Management Discharge Planning Summary COMMENTS ENTERED DATE: 12/31/20 18:50 CT COMMENT TYPE: Discharge Planning REVIEWER: Mookie Verma CM met with patient to complete DC plan and to evaluate needs. Patient is dependent for ADLs and lives with his spouse, Federica Espitia, . Patient stated that his home is safe and has electricity and running water. Patient uses a cane, walker and wheelchair to ambulate in his home and is able to enter his home without problems. Patient stated that he has no problems paying for medications and he fills his medications at [facility] on [facility]. Patient stated that his primary care physician is Dr. Baugh. At discharge, the patient plans to return home and feels this is a safe discharge. CM discussed availability of home health, rehab services, and medical equipment. Patient declined SNF, IPR, and DME but would like to have HHS through [facility]. ALPHONSO signed and placed in chart. Patient has a bedside commode and shower chair. Patient voiced no other needs at this time and is satisfied with DC plan. CM will continue to follow and will assist as needed with dc plans/needs. DCP REVIEW SUMMARY ANTICIPATED D/C DATE: 12/31/2020 EXPECTED LOS : 1 CASE STATUS: DCP Complete INITIAL REVIEW: 12/30/2020 INITIAL REVIEWER: Deanna Pierce FINAL DISCHARGE DISPOSITION: : FINAL REVIEWER: FINAL REVIEW DATE: DCP Focus Questions & Answers DCP Evaluation QUESTION: ANSWER Patient gives permission to discuss discharge plans with: (name, relationship and number) : spouse, Federica Espitia, Patient's ability to cope with chronic illness : d. No chronic illness Patient's current cognitive status: : *Oriented to person, place, situation, time and present Patient's current cognitive status: : Intermittently confused / memory changes Family / Caregiver's ability to cope with chronic illness: : a. Adequate (ability to meet patient's medical needs, ensures patient attends medical appts.) Patient and/or caregiver agree upon recommended discharge plan? : Yes Physical Status: : Hearing impaired Physical Status: : Mobility impaired Physical Status: : Partial care dependence Family / Caregiver's ability to cope with chronic illness: : a. Adequate (ability to meet patient's medical needs, ensures patient attends medical appts.) Functional screen assessment: : Basic needs can adequately be met by self Does the patient have the ability to pay for or attain post discharge needs / services? : Yes Partial Dependence, assistance required for: : Ambulation / Mobility Partial Dependence, assistance required for: : Bathing Partial Dependence, assistance required for: : Dressing Partial Dependence, assistance required for: : Eating Living Arrangements: : Home with Spouse/Significant Other Is there a likelihood that the patient will require additional services to return to the preadmission environment? : Yes Equipment needed for post hospitalization: : None Baseline cognitive status: : *Oriented to person, place, situation, time and present Baseline cognitive status: : Intermittently confused / memory changes Patient with capacity for self-care or can be cared for in same environment as prior to hospitalization? : Yes Physical environment modification needed / anticipated for discharge: : No Medication Management: : Patient states can afford medications Medication Management: : Patient states can read and understand medication labels Pharmacy name(s): : [facility] on [facility] Does Patient have transportation to get home and to follow-up medical appointments when discharged from the hospital? : Yes Would patient like to participate in any Care Coordination programs (if applicable): : Not applicable Does the patient have electricity at home? : Yes Does the patient have running water in their house? : Yes Equipment in use: : Bedside Commode Equipment in use: : Cane - Single Leg Equipment in use: : Shower Chair Equipment in use: : Walker - Rolling Equipment in use: : Wheelchair Mental health screen: : No mental health history DCP Re-evaluation QUESTION: ANSWER Would patient like to participate in any Care Coordination programs (if applicable): : Not applicable PATIENT: ANABELLE ESPITIA ENCOUNTER: [id number] MEDICAL RECORD#: [id number] ADMISSION DATE: 12/30/2020 DISCHARGE DATE: 12/31/2020 ATTENDING MD: BALTAZAR: AGE: 75 MARITAL STATUS: M DC PLAN ID: [id number] FACILITY: PRINTED ON: 12/31/20 19:03 CT All edits/amendments must be made on the electronic document DICTATION DATE: 12/31/201902 METAL MOULDER: MARILU 12/31/201902 RPT#: [id number] DC DATE:12/31/20 STATUS: DIS [facility] [address] [place] [address] END OF REPORT
--- NOTE | 2021-01-02 12:28 | MORECARE ---
CASE MANAGEMENT DISCHARGE SUMMARY PATIENT: ANABELLE ESPITIA UNIT: [id number] ADM DATE: 12/30/20 AGE: 75 : 47 SEX: M ROOM/BED: D.2113 AUTHOR: SWETHA,DOC PHYSICIAN: REFERRING PHYSICIAN: CARMEN CHENG MD DATE OF SERVICE: 01/02/21 Case Management Discharge Planning Summary COMMENTS ENTERED DATE: 12/31/20 18:50 CT COMMENT TYPE: Discharge Planning REVIEWER: Mookie Verma CM met with patient to complete DC plan and to evaluate needs. Patient is dependent for ADLs and lives with his spouse, Federica Espitia, . Patient stated that his home is safe and has electricity and running water. Patient uses a cane, walker and wheelchair to ambulate in his home and is able to enter his home without problems. Patient stated that he has no problems paying for medications and he fills his medications at [facility] on [address] [facility]. Patient stated that his primary care physician is Dr. Baugh. At discharge, the patient plans to return home and feels this is a safe discharge. CM discussed availability of home health, rehab services, and medical equipment. Patient declined SNF, IPR, and DME but would like to have HHS through [facility]. ALPHONSO signed and placed in chart. Patient has a bedside commode and shower chair. Patient voiced no other needs at this time and is satisfied with DC plan. CM will continue to follow and will assist as needed with dc plans/needs. DCP REVIEW SUMMARY ANTICIPATED D/C DATE: 12/31/2020 EXPECTED LOS : 1 CASE STATUS: DCP Complete INITIAL REVIEW: 12/30/2020 INITIAL REVIEWER: Deanna Pierce FINAL DISCHARGE DISPOSITION: : FINAL REVIEWER: FINAL REVIEW DATE: DCP Focus Questions & Answers DCP Evaluation QUESTION: ANSWER Patient and/or caregiver agree upon recommended discharge plan? : Yes Family / Caregiver's ability to cope with chronic illness: : a. Adequate (ability to meet patient's medical needs, ensures patient attends medical appts.) Patient's current cognitive status: : Intermittently confused / memory changes Patient's current cognitive status: : *Oriented to person, place, situation, time and present Patient's ability to cope with chronic illness : d. No chronic illness Patient gives permission to discuss discharge plans with: (name, relationship and number) : spouse, Federica Espitia, Does the patient have the ability to pay for or attain post discharge needs / services? : Yes Functional screen assessment: : Basic needs can adequately be met by self Family / Caregiver's ability to cope with chronic illness: : a. Adequate (ability to meet patient's medical needs, ensures patient attends medical appts.) Physical Status: : Partial care dependence Physical Status: : Mobility impaired Physical Status: : Hearing impaired Equipment needed for post hospitalization: : None Is there a likelihood that the patient will require additional services to return to the preadmission environment? : Yes Living Arrangements: : Home with Spouse/Significant Other Partial Dependence, assistance required for: : Eating Partial Dependence, assistance required for: : Dressing Partial Dependence, assistance required for: : Bathing Partial Dependence, assistance required for: : Ambulation / Mobility Patient with capacity for self-care or can be cared for in same environment as prior to hospitalization? : Yes Baseline cognitive status: : Intermittently confused / memory changes Baseline cognitive status: : *Oriented to person, place, situation, time and present Physical environment modification needed / anticipated for discharge: : No Medication Management: : Patient states can read and understand medication labels Medication Management: : Patient states can afford medications Pharmacy name(s): : [facility] on [address] Does Patient have transportation to get home and to follow-up medical appointments when discharged from the hospital? : Yes Would patient like to participate in any Care Coordination programs (if applicable): : Not applicable Does the patient have electricity at home? : Yes Does the patient have running water in their house? : Yes Equipment in use: : Wheelchair Equipment in use: : Walker - Rolling Equipment in use: : Shower Chair Equipment in use: : Cane - Single Leg Equipment in use: : Bedside Commode Mental health screen: : No mental health history DCP Re-evaluation QUESTION: ANSWER Would patient like to participate in any Care Coordination programs (if applicable): : Not applicable PATIENT: ANABELLE ESPITIA ENCOUNTER: [id number] MEDICAL RECORD#: [id number] ADMISSION DATE: 12/30/2020 DISCHARGE DATE: 12/31/2020 ATTENDING MD: BALTAZAR: AGE: 75 MARITAL STATUS: M DC PLAN ID: [id number] FACILITY: [facility] PRINTED ON: 01/02/21 12:28 CT All edits/amendments must be made on the electronic document DICTATION DATE: 01/02/218 LACE STRIPPER: MARILU 01/02/218 RPT#: [id number] DC DATE:12/31/20 STATUS: DIS IN [facility] [address] [place] [address] END OF REPORT
== END 2020-12-31 13:00 | disposition home health service (06) | DRG 683 ==
LOC: D.ER 12:30 → D.M2 14:10 → D.EDHOLD 14:10 → D.M2 16:44
PROVIDERS: Family Medicine; Internal Medicine Nephrology; ADMIT Family Medicine; ATTEND Family Medicine
DX: I12.9 Hypertensive chronic kidney disease with stage 1 through stage 4 chronic kidney disease, or unspecified chronic kidney disease (principal); N18.4 Chronic kidney disease, stage 4 (severe); E87.2 Acidosis; N17.9 Acute kidney failure, unspecified; R53.1 Weakness; N18.9 Chronic kidney disease, unspecified; R26.89 Other abnormalities of gait and mobility; E78.5 Hyperlipidemia, unspecified; I25.10 Atherosclerotic heart disease of native coronary artery without angina pectoris; I48.91 Unspecified atrial fibrillation; G47.33 Obstructive sleep apnea (adult) (pediatric); K21.9 Gastro-esophageal reflux disease without esophagitis; M19.90 Unspecified osteoarthritis, unspecified site; G89.29 Other chronic pain; G47.00 Insomnia, unspecified; F41.9 Anxiety disorder, unspecified; E11.22 Type 2 diabetes mellitus with diabetic chronic kidney disease; D63.1 Anemia in chronic kidney disease